=== PATIENT | female | born 1940 | race Caucasian/White ===

== ENCOUNTER → 2017-09-16 | Outpatient (CLI) | payer MEDICARE ==
[2017-09-16 10:54] LABS: Non-African American GFR(MDRD) >60 (>60 ml/min/1.73 sqM)
--- NOTE | 2017-09-17 02:00 | MR ---
EXAMINATION TYPE: MR lumbar spine wo/w con DATE OF EXAM: 09/16/2017 COMPARISON: Unavailable at the time of interpretation. HISTORY: Low back pain CONTRAST: 7 mL intravenous Gadavist. TECHNIQUE: Multiplanar, multisequence images of the lumbar spine were acquired. FINDINGS: Cord terminates at the L1-L2 level. There is loss of disc height L1-2 and L5-S1. L5-S1: No significant disc bulge or disc herniation. No spinal canal stenosis. There is right facet hypertrophy with some posterior lateral thecal sac compression. Right foraminal stenosis with disc material and spurring with impingement of the exiting nerve root.. L4-L5: No significant disc bulge or disc herniation. No spinal canal stenosis. No foraminal stenosi s. There is moderate facet hypertrophy present, greater on the left with some posterior lateral theca l sac compression. L3-L4: Mild subligamentous disc herniation is present extending beyond the endplate of L5 3. This has minimal anterior thecal sac compression. There is moderate facet hypertrophy with moderate posterior lateral thecal sac compression on the left. Minimal right facet hypertrophy is present. L2-L3: No significant disc bulge or disc herniation. No spinal canal stenosis. Some foraminal narro wing is present in the axial plane and not as well appreciated in the sagittal plane. Facet hypertrop hy is present with posterior lateral thecal sac compression bilaterally. . L1-L2: There is moderate size left paracentral disc herniation. This has moderate anterior thecal sac compression. No AP spinal canal stenosis present. Facet hypertrophy is present with mild posterior l ateral thecal sac compression. Moderate left foraminal narrowing may be present. T12-L1: Minimal paracentral disc bulge is present. There is some mild central focal subligamentous di sc herniation with mild anterior thecal sac compression. No cord contact is evident. No AP spinal can al stenosis is present. Facet hypertrophy is present with mild posterior lateral thecal sac compressi on greater on the left which may has some contact with the cord posteriorly. Laminectomy has been performed at L5 on the right and L4 on the right. No stenosis is present. No abn ormal enhancement is evident IMPRESSION: 1. Postsurgical changes L4-5 L5-S1. 2. Multilevel degenerative disc changes greatest at L1-2 and L5-S1. 3. Facet hypertrophy and ligamentum flavum laxity through multiple levels with posterior lateral thec al sac compression. This has cord contact at the T12-L1 level. 4. Subligamentous disc herniation L3-4, L1-L2 and T12-L1 with mild anterior thecal sac compression at these levels.
== END | disposition home or self-care (01) ==
LOC: RADMRIMAIN 10:20
PROVIDERS: ATTEND Psychiatry & Neurology Neurology
DX: M51.15 Intervertebral disc disorders with radiculopathy, thoracolumbar region (principal); M47.27 Other spondylosis with radiculopathy, lumbosacral region; M24.28 Disorder of ligament, vertebrae; G95.29 Other cord compression; Z98.890 Other specified postprocedural states
CPT/HCPCS: 82565; 72158; A9581

== ENCOUNTER → 2017-12-09 | Outpatient (CLI) | payer MEDICARE ==
[2017-12-09 13:13] LABS: HCT 43.1 % (34.0-46.0); HGB 14.9 gm/dL (11.4-16.0); MCH 33.2 pg (25.0-35.0); MCHC 34.5 g/dL (31.0-37.0); MCV 96.3 fL (80.0-100.0); Mean Platelet Volume 6.5; Platelet Count 282 k/uL (150-450); RBC 4.48 m/uL (3.80-5.40); RDW 12.2 % (11.5-15.5); WBC 8.9 k/uL (3.8-10.6)
[2017-12-09 13:17] LABS: INR 1.1 (<1.2)
[2017-12-09 13:30] LABS: ALT 23 U/L (9-52); AST 18 U/L (14-36); Albumin 4.4 g/dL (3.5-5.0); Alkaline Phosphatase 69 U/L (38-126); Anion Gap 10 mmol/L; Blood Urea Nitrogen 17 mg/dL (7-17); Calcium 9.5 mg/dL (8.4-10.2); Carbon Dioxide 31 mmol/L (22-30); Chloride 101 mmol/L (98-107); Glucose 85 mg/dL (74-99); Potassium 3.4 mmol/L (3.5-5.1); Sodium 142 mmol/L (137-145); Total Bilirubin 0.5 mg/dL (0.2-1.3); Total Protein 7.2 g/dL (6.3-8.2)
[2017-12-09 13:44] LABS: Partial Thromboplastin Time 21.9 sec (22.0-30.0)
== END | disposition home or self-care (01) ==
LOC: LABPAT 12:40
PROVIDERS: ATTEND Orthopaedic Surgery
DX: Z01.818 Encounter for other preprocedural examination (principal); Z01.812 Encounter for preprocedural laboratory examination; Z79.01 Long term (current) use of anticoagulants
CPT/HCPCS: 36415; 80053; 85027; 85610; 85730; 87070; 93005

== ENCOUNTER 2017-12-26 05:34 | Inpatient (IN) | payer MEDICARE ==
[2017-12-13 11:22] VITALS: BMI 26.5
[~2017-12-26 05:34] MED LIST: ACETAMINOPHEN TAB 500 MG TAB PO ONE; CLINDAMYCIN 900 MG in DEXTROSE 5% IN WATER 50 ML IVPB ONE; MELOXICAM 7.5 MG TAB PO ONE; MORPHINE SULFATE 4 MG/ML SYRINGE IV PRN; ONDANSETRON 4 MG/2 ML VIAL IVP ONE; TRANEXAMIC ACID 1,000 MG in SODIUM CHLORIDE 0.9% 50 ML IVPB ONE
[2017-12-26] MEDS ORDERED: ROPIVACAINE 246.25 MG, EPINEPHrine 0.5 MG, KETOROLAC 30 MG, cloNIDine HCL/PF 80 MCG, WA... MISCELLANE ONE ×5 (05:59)
[2017-12-26] MEDS ORDERED: LIDOCAINE 1% 20 ML VIAL (10MG/ML) FOR IV START INTRADERMA ONE (06:41)
[2017-12-26] MEDS: LACTATED RINGERS 1,000 ML IV SCH (06:42)
[2017-12-26] MEDS ORDERED: MAGNESIUM HYDROXIDE 2,400 MG/10 ML CUP PO PRN (07:25)
[2017-12-26] MEDS ORDERED: hydrOXYzine PAMOATE 25 MG CAP PO PRN (07:25)
[2017-12-26] MEDS ORDERED: MORPHINE SULF 5MG/10ML VL IVP PRN ×2 (07:25)
[2017-12-26] MEDS ORDERED: DIAZEPAM 5 MG TAB PO PRN ×2 (07:25)
[2017-12-26] MEDS ORDERED: ONDANSETRON 4 MG/2 ML VIAL IVP PRN (07:25)
[2017-12-26] MEDS ORDERED: NALOXONE 0.4 MG/ML 1 ML VIAL IV PRN (07:25)
[2017-12-26] MEDS ORDERED: HYDROcodone/APAP 5-325MG 1 EACH TAB PO PRN (07:25)
[2017-12-26] MEDS ORDERED: PROPOFOL 10 MG/ML 20 ML VIAL IV ONE (07:28)
[2017-12-26] MEDS ORDERED: TRANEXAMIC ACID 1,000 MG/10 ML VIAL ONE (07:28)
[2017-12-26] MEDS ORDERED: fentaNYL (PF) 50 MCG/ML 2 ML AMP ONE (07:28)
[2017-12-26] MEDS ORDERED: SODIUM CHLORIDE 0.9% 100 ML BAG ONE (07:28)
[2017-12-26] MEDS ORDERED: LIDOCAINE 1% INJ 10MG/ML (20 ML MDV) ONE (07:28)
[2017-12-26] MEDS ORDERED: MIDAZOLAM 2 MG/2 ML VIAL ONE (07:28)
[2017-12-26] MEDS ORDERED: ePHEDrine SULFATE/0.9% NACL/PF 50 MG/5 ML SYRINGE IV ONE (07:28)
--- NOTE | 2017-12-26 09:02 | P.OP ---
Date of Procedure: 12/26/17 Preoperative Diagnosis: Severe Osteoarthritis right hip Postoperative Diagnosis: Severe osteoarthritis right hip Procedure(s) Performed: Right total hip arthroplasty with a direct anterior approach Implants: Hawley and nephew Polarstem size 1 standard Hawley [employer] Nephew R3, 3 hole acetabular shell, 48 mm Hawley [employer]hew reflection 6.5 mm cancellus screw, 20 mm 2 [employer]ley [employer]hew R3, XLPE 20 acetabular liner [employer]ley & Nephew Oxinium femoral head 32 m, +0 All components were press-fit. The articulation is Oxinium on polyethylene. Anesthesia: spinal Surgeon: Lukas Collins Corporate Travel Counselor #1: Araceli Guillaume Estimated Blood Loss (ml): 200 (65 mL returned with Cell Saver) Pathology: other (Femoral head) Condition: stable Disposition: PACU Indications for Procedure: After failure of conservative treatment we discussed the surgical and nonsurgical treatment options at length. Patient wishes to proceed with a total hip arthroplasty with a direct anterior approach. Complications specific to this procedure were discussed at length, including but not limited to infection, leg length discrepancy, dislocation, and nerve injury. Patient is aware of all these complications and informed consent was obtained Operative Findings: The operative findings are consistent with severe osteoarthritis of the right hip Description of Procedure: Patient was seen and evaluated in the preoperative area, consent was reviewed, and the surgical site was marked with a skin marker. Patient was then brought to the operating room and given prophylactic antibiotics intravenously. 1 g of Tranexamic acid was also given. A spinal anesthetic was administered by the anesthesia department. The patient was then placed on the Broadview table with the bony prominences well-padded. The hip area was then prepped and draped in usual sterile fashion. A universal timeout was then performed, which confirmed the patient's name, surgical site, ALLERGIES, and procedure being performed. Next the incision site was located at 1 cm distal and 1 cm lateral to the anterior superior iliac spine. The skin and subcutaneous tissues were sharply incised. Incision was carefully dissected down to the fascia overlying the tensor fascia deirdre muscle. This fascia was then incised in line with the incision. Next, using blunt finger dissection, the tensor fascia deirdre muscle was dissected off its investing fascia. The muscle was then carefully retracted laterally with a cobra retractor over the lateral neck of the femur. Next, the circumflex vessels were identified and cauterized using the AquaMantis device. The anterior hip capsule was then exposed. The capsule was then opened and an inverted T fashion. Cobra retractors were then placed intracapsularly. The proximal femur was then visualized. The femoral neck was then osteotomized appropriate level above the lesser trochanter. Small amount of traction was placed with the Broadview table. A small wedge of bone was then removed from the remaining femoral head. Next, using a corkscrew femoral head was easily removed from the acetabulum. On gross visual inspection, the femoral head had complete loss of articular cartilage in multiple periarticular osteophytes. Attention was then turned to the acetabulum. the acetabulum was exposed and any remaining labrum was excised. Sequential reaming of the acetabulum was performed using fluoroscopic guidance. When the appropriate size was reached, a trial was then placed. The position and fit of the trial was checked with fluoroscopy. The trial was then removed. Then, using fluoroscopic guidance, the final implant was impacted at 20 of anteversion and 40 of abduction, and fully seated in the acetabulum. 2 screws were then placed in the acetabulum. Again fluoroscopy was used to check position of the screws. Next, the liner was then impacted, with a 20 elevated liner located in the anterior superior quadrant. Component locking was confirmed. Attention was then directed to the femur. With the aid of the Broadview table, the femur was externally rotated to approximately 130, extended, and abducted under the opposite leg. A side hook was then placed under the proximal femur, and the side hook elevator was used to elevate the proximal femur. Retractors were then placed. A capsular release was performed, as well as a release of the conjoined tendon, which afforded excellent visualization of the proximal femur. Next, a box osteotome was used to lateralize the proximal femur. A merchandise appraiser was then used to locate the femoral canal. Sequential broaching was then performed with appropriate size which afforded excellent fixation in the proximal femur. A trial was then placed with appropriate head and neck, and the hip was gently reduced with the aid of the Broadview table. Fluoroscopy was then used to check position of the components, as well as to ensure equal leg lengths. The hip was then gently dislocated and the trials were then removed. Final implants were then impacted and the hip was again reduced. Final fluoroscopic x-rays confirmed that the components were in anatomic position, as well as equal leg lengths. The hip was also taken through range of motion, and found to be stable. The hip was then copiously irrigated with antibiotic solution with pulsatile lavage. The hip was then irrigated with Irrisept solution. The soft tissues were then injected with a ropivacaine solution, which consisted of 246.25 mg of ropivacaine, 0.5 mg of epinephrine, 30 mg of Toradol, 80 g of clonidine, and 48.45 mL of sterile water, for a total of 100 mL of fluid injected. A second dose of 1 g of Tranexamic acid was also given. the fascia was then closed with 2-0 strata fix suture. The subcutaneous tissue was closed with 3-0 Vicryl. The subcuticular tissue was closed with 3-0 strata fix suture. The skin was then closed with Dermabond glue and a sterile silver dressing. The patient was then transferred to the recovery room in stable condition. The electrician's assistant VALENTINO Lara was required due to the complexity of surgery, and the need for skilled director surgical for positioning, draping, exposure, retraction, and closure of the wound.
[2017-12-26] MEDS ORDERED: LACTATED RINGERS 1,000 ML IV ONE (09:03)
--- NOTE | 2017-12-26 09:22 | XR ---
EXAMINATION TYPE: XR Hip Limited RT, FL guidance operating room DATE OF EXAM: 12/26/2017 COMPARISON: NONE HISTORY: 77-year-old female right anterior hip replacement FINDINGS: Intraoperative fluoroscopy during right hip total arthroplasty. 2 AP images are provided. FLUOROSCOPY Fluoroscopy time of 39 seconds was used during right anterior hip replacement. 2 image/s document/s the procedure. IMPRESSION: Intraoperative fluoroscopy as above.
--- NOTE | 2017-12-26 09:23 | XR ---
EXAMINATION TYPE: XR Hip Limited RT DATE OF EXAM: 12/26/2017 COMPARISON: NONE HISTORY: 77-year-old female status post hip surgery, assess surgical alignment TECHNIQUE: Single portable AP view FINDINGS: Image shows placement of right hip total arthroplasty. Both acetabular cup and femoral short stemmed components of the prosthesis appear well seated without periprosthetic fracture. Alignment grossly an atomic. Scattered soft tissue gas related to recent operation. IMPRESSION: Uncomplicated postoperative appearance right total hip arthroplasty.
[2017-12-26] MEDS ORDERED: MORPHINE SULFATE 10 MG/ML SYRINGE IVP ONE ×2 (09:26→09:45)
[2017-12-26] MEDS: SODIUM CHLORIDE 0.9% 1,000 ML IV SCH (10:44)
[2017-12-26] MEDS: HYDROcodone/APAP 5-325MG 1 EACH TAB PO PRN ×2 (14:40→21:22)
[2017-12-26] MEDS: CLINDAMYCIN 900 MG in DEXTROSE 5% IN WATER 50 ML IVPB SCH ×4 (14:44→22:55)
[2017-12-26] MEDS: MORPHINE SULF 5MG/10ML VL IVP PRN (17:16)
[2017-12-26] MEDS: ASPIRIN 325 MG TAB PO SCH (21:21)
[2017-12-26] MEDS: SENNOSIDES-DOCUSATE SODIUM 1 EACH TAB PO SCH (21:22)
[2017-12-26] MEDS: GABAPENTIN 300 MG CAP PO SCH (21:22)
--- NOTE | 2017-12-26 22:39 | CONS ---
CONSULTATION This is a 77-year-old white female, status post right hip replacement. I am consulted for medical management consult status post hip replacement. She is up walking to the bathroom. She has a history of hypertension. Medications were reviewed with the patient. She appears to be doing well, ambulating postoperatively at this time. PAST MEDICAL HISTORY: Hypertension. REVIEW OF SYSTEMS: Fourteen-point review of systems negative except for mentioned in the HPI. PHYSICAL EXAMINATION: Temperature 98, pulse 60 to 70, respiratory rate 16 to 18, blood pressure 120/68, oxygen 94% on room air. CARDIOVASCULAR: S1, S2. LUNGS: Clear. GI: Soft. HEMATOLOGY: Negative Homans. MUSCULOSKELETAL: Range of motion full x4. She is up ambulating on her hip postoperatively. ASSESSMENT: 1. Status post hip replacement. 2. Hypertension. 3. Osteoarthritis. Continue with current treatment. Start home Neurontin and her atenolol for blood pressure. Follow up in next 24 to 48 hours. MMODL / IJN: [id number] /
[2017-12-27] MEDS: MORPHINE SULF 5MG/10ML VL IVP PRN (01:38)
[2017-12-27] MEDS: SODIUM CHLORIDE 0.9% 1,000 ML IV SCH ×2 (06:43→08:46)
[2017-12-27] MEDS: LACTATED RINGERS 1,000 ML IV SCH (06:43)
[2017-12-27 07:32] LABS: Basophils % (A) 0 %; Eosinophils # (A) 0.1 k/uL (0-0.7); Eosinophils % (A) 1 %; Lymphocytes # (A) 2.7 k/uL (1.0-4.8); Lymphocytes % (A) 27 %; MCHC 34.6 g/dL (31.0-37.0); MCV 95.5 fL (80.0-100.0); Mean Platelet Volume 8.4; Monocytes # (A) 0.9 k/uL (0-1.0); Monocytes % (A) 8 %; Neutrophils # (A) 6.4 k/uL (1.3-7.7); Neutrophils % (A) 63 %; Platelet Count 186 k/uL (150-450); RBC 3.46 m/uL (3.80-5.40); RDW 12.5 % (11.5-15.5); WBC 10.2 k/uL (3.8-10.6)
[2017-12-27 07:34] LABS: HGB 11.4 gm/dL (11.4-16.0)
[2017-12-27] MEDS ORDERED: HYDROcodone/APAP 7.5-325MG 1 EACH TAB PO PRN (08:16)
--- NOTE | 2017-12-27 08:19 | P.PN ---
Subjective Progress Note Date: 12/27/17 This 77-year-old female who is status post right total hip arthroplasty. This is postoperative day #1. Patient states that she does have some pain in the right hip ,especially after walking, but the pain is tolerable. Patient denies any fever/chills, numbness, weakness, tingling, abdominal pain, shortness of breath or chest pain. Objective - Vital Signs Vital signs: Vital Signs Temp 98.5 F 12/27/17 00:26 Pulse 87 12/27/17 00:26 Resp 16 12/27/17 00:26 BP 114/66 12/27/17 00:26 Pulse Ox 94 L 12/27/17 00:26 Intake & Output 12/26/17 12/27/17 12/27/17 18:59 06:59 18:59 Intake Total 1056 2040 Output Total 300 Balance 756 2040 Intake: IV 1056 Intake, IV Titration 1140 Amount Clindamycin 900 mg In 100 Dextrose 5% in Water 50 ml @ 100 mls/hr IVPB Q8H WILBERT Rx#:[id number] Sodium Chloride 0.9% 1, 1040 000 ml @ 65 mls/hr IV . [id number] WILBERT Rx#:[id number] Oral 900 Output: Urine 100 Estimated Blood Loss 200 Other: Voiding Method Toilet # Voids 1 2 - Exam Vital signs are stable. Patient is in no acute distress and is alert and oriented 3. Calf is soft and nontender to palpation. Dressing is clean, dry, and intact. Patient has full foot and ankle motion without pain or difficulty. Neurovascular status and circulatory status are intact. - Labs CBC & Chem 7: 12/27/17 06:40 12/26/17 06:40 Labs: Abnormal Lab Results - Last 24 Hours (Table) 12/27/17 Range/Units 06:40 RBC 3.46 L (3.80-5.40) m/uL Hct 33.0 L (34.0-46.0) % Assessment and Plan (1) S/P total hip arthroplasty Current Visit: Yes Status: Acute Code(s): Z96.649 - PRESENCE OF UNSPECIFIED ARTIFICIAL HIP JOINT SNOMED Code(s): 325092120364 (2) Primary osteoarthritis of right hip Current Visit: Yes Status: Acute Code(s): M16.11 - UNILATERAL PRIMARY OSTEOARTHRITIS, RIGHT HIP SNOMED Code(s): 363524942 Plan: Continue routine postop care. Continue antocoagulation. Weightbearing as tolerated with a walker Leave dressing in place for 10-14 days Possible discharge home tomorrow.
[2017-12-27] MEDS: ASPIRIN 325 MG TAB PO SCH ×2 (08:35→20:05)
[2017-12-27] MEDS: GABAPENTIN 300 MG CAP PO SCH ×3 (08:36→23:22)
[2017-12-27] MEDS: MELOXICAM 7.5 MG TAB PO SCH (08:36)
[2017-12-27] MEDS: ATENOLOL 25 MG TAB PO SCH ×2 (08:36→08:57)
[2017-12-27] MEDS: HYDROcodone/APAP 7.5-325MG 1 EACH TAB PO PRN ×3 (08:37→20:06)
[2017-12-27] MEDS ORDERED: MORPHINE SULFATE 4MG/4ML SYRG IVP PRN ×3 (14:27→14:28)
[2017-12-27 15:53] VITALS: RESP 16
[2017-12-27] MEDS: SENNOSIDES-DOCUSATE SODIUM 1 EACH TAB PO SCH (20:05)
[2017-12-28 05:22] VITALS: TEMP 98.7
[2017-12-28] MEDS: LACTATED RINGERS 1,000 ML IV SCH (06:55)
[2017-12-28] MEDS: SODIUM CHLORIDE 0.9% 1,000 ML IV SCH (06:55)
[2017-12-28] MEDS: HYDROcodone/APAP 7.5-325MG 1 EACH TAB PO PRN ×2 (07:52→14:37)
[2017-12-28] MEDS: MELOXICAM 7.5 MG TAB PO SCH (08:47)
[2017-12-28] MEDS: GABAPENTIN 300 MG CAP PO SCH (08:47)
[2017-12-28] MEDS: ASPIRIN 325 MG TAB PO SCH (08:48)
[2017-12-28] MEDS: ATENOLOL 25 MG TAB PO SCH (08:48)
--- NOTE | 2017-12-28 08:49 | P.DS ---
Providers Date of admission: 12/26/17 05:34 Expected date of discharge: 12/28/17 Attending physician: Lukas Collins Consults: 12/26/17 07:25 Consult Physician Routine Consulting Provider: Clifton Alan Reason/Comments: medical management Do you want consulting provider notified?: Yes Primary care physician: Lorne Alan - Discharge Diagnosis(es) (1) S/P total hip arthroplasty Current Visit: Yes Status: Acute (2) Primary osteoarthritis of right hip Current Visit: Yes Status: Acute Hospital Course: This is a 77-year-old female with known history of degenerative arthritis of the right hip. The patient presents for evaluation. After discussion and consideration patient elects to proceed with total hip arthroplasty. The patient is seen preoperatively by Dr. Collins and medically cleared for surgery by their primary care physician. Patient is admitted to [facility] on 12/26/2017 for total hip arthroplasty. The procedures performed without complication or sequelae. The patient is doing well postoperatively. Labs and vital signs are stable on day of discharge. On day of discharge patient's hip incision is healing well. There is minimal erythema. There is no drainage noted at this time. There is minimal soft tissue swelling to the hip and thigh. Patient has full foot and ankle motion without difficulty or pain. Calves are soft and nontender bilaterally. Neurovascular status to the right lower extremity is intact. Patient is discharged home in good condition. Please see med rec for accurate list of home medications. Plan - Discharge Summary Discharge Rx Participant: Yes New Discharge Prescriptions: New Aspirin 325 mg PO BID #60 tab HYDROcodone/APAP 7.5-325MG [Dewey 7.5-325] 1 - 2 tab PO Q4-6H PRN #60 tab PRN Reason: Pain Sennosides [Senokot] 1 tab PO BID #60 tablet No Action Atenolol [Tenormin] 25 mg PO DAILY traMADol HCL [Ultram] 25 mg PO TID PRN PRN Reason: Pain Gabapentin [Neurontin] 300 mg PO TID Discharge Medication List Atenolol [Tenormin] 25 mg PO DAILY 02/19/16 [History] Gabapentin [Neurontin] 300 mg PO TID 02/19/16 [History] traMADol HCL [Ultram] 25 mg PO TID PRN 02/19/16 [History] Aspirin 325 mg PO BID #60 tab 12/28/17 [Rx] HYDROcodone/APAP 7.5-325MG [Dewey 7.5-325] 1 - 2 tab PO Q4-6H PRN #60 tab [Rx] Sennosides [Senokot] 1 tab PO BID #60 tablet 12/28/17 [Rx] Follow up Appointment(s)/Referral(s): [facility], [NON-STAFF] - Lukas Collins DO [Doctor of Osteopathic Medicine] - 2 Weeks Activity/Diet/Wound Care/Special Instructions: Weightbearing as tolerated with walker. Leave dressing intact. Dressing may be removed by home care nurse in 10-14 days. May shower with dressing on. Please take medications as prescribed. Follow-up with [facility] in 2 weeks, please call with any questions or concerns [phone] Discharge Disposition: HOME WITH HOME HEALTH SERVICES
[2017-12-28 14:53] VITALS: BP 105/61; PULSE 73
== END 2017-12-28 16:14 | disposition home health service (06) | DRG 470 ==
LOC: 2ORMAIN 05:34 → 3SUR 09:16
PROVIDERS: ADMIT Orthopaedic Surgery; ATTEND Orthopaedic Surgery
PROC: 30233N0 Transfusion of Autologous Red Blood Cells into Peripheral Vein, Percutaneous Approach (ICD-10-PCS; 2017-12-26)
PROC: 0SR906A Replacement of Right Hip Joint with Oxidized Zirconium on Polyethylene Synthetic Substitute, Uncemented, Open Approach (ICD-10-PCS; principal; 2017-12-26 07:30)
DX: M16.11 Unilateral primary osteoarthritis, right hip (principal); I69.359 Hemiplegia and hemiparesis following cerebral infarction affecting unspecified side; I10 Essential (primary) hypertension; R53.83 Other fatigue; M25.751 Osteophyte, right hip; M81.0 Age-related osteoporosis without current pathological fracture; H40.9 Unspecified glaucoma; M41.9 Scoliosis, unspecified; M47.817 Spondylosis without myelopathy or radiculopathy, lumbosacral region; M54.12 Radiculopathy, cervical region; M19.012 Primary osteoarthritis, left shoulder; E78.5 Hyperlipidemia, unspecified; E87.6 Hypokalemia; Z96.653 Presence of artificial knee joint, bilateral; Z85.828 Personal history of other malignant neoplasm of skin; Z85.3 Personal history of malignant neoplasm of breast; Z79.899 Other long term (current) drug therapy; Z88.0 Allergy status to penicillin; Z79.82 Long term (current) use of aspirin; Z86.59 Personal history of other mental and behavioral disorders; Z86.010 Personal history of colon polyps; Z90.49 Acquired absence of other specified parts of digestive tract; Z90.710 Acquired absence of both cervix and uterus; Z90.89 Acquired absence of other organs; Z92.3 Personal history of irradiation; Z82.49 Family history of ischemic heart disease and other diseases of the circulatory system
CPT/HCPCS: 73501; 84132; 85025; 86850; 86900; 86901; 88300

== ENCOUNTER → 2018-07-19 | Outpatient (CLI) | payer MEDICARE ==
--- NOTE | 2018-07-19 12:37 | CT ---
EXAMINATION TYPE: CT shoulder RT wo con DATE OF EXAM: 07/19/2018 COMPARISON: Pain HISTORY: Pain, osteoarthritis CT DLP: 431 mGycm Automated exposure control for dose reduction was used. FINDINGS: There is fluid within the subacromial subdeltoid bursa. There severe arthropathy of the glenohumeral joint and acromioclavicular joint. Soft tissue ossificat ion is seen along the anterior margin of the scapula. Visualized lung kirkland demonstrate mild interlobular septal thickening. Calcified granuloma in the ri ght upper lobe on image 39 noted. No pathologic adenopathy in the axilla. Chronic rib deformities suggest remote trauma. Hypertrophic and degenerative change of the vertebral column. IMPRESSION: 1. Severe arthropathy of the glenohumeral joint with complete loss of joint space and likely complete loss of articular cartilage. 2. 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 3. Moderate to severe AC joint arthropathy with fluid in the subacromial subdeltoid bursa. This can b e a secondary sign of the rotator cuff tendon injury. Correlate clinically.
== END ==
LOC: RADCTMAIN 10:36
PROVIDERS: ATTEND Orthopaedic Surgery Sports Medicine
DX: M19.011 Primary osteoarthritis, right shoulder (principal); D48.0 Neoplasm of uncertain behavior of bone and articular cartilage

== ENCOUNTER → 2018-08-01 | Outpatient (CLI) | payer MEDICARE ==
[2018-08-01 12:54] LABS: HCT 44.7 % (34.0-46.0); HGB 14.3 gm/dL (11.4-16.0); MCH 31.8 pg (25.0-35.0); MCHC 32.1 g/dL (31.0-37.0); MCV 99.3 fL (80.0-100.0); Mean Platelet Volume 6.9; Platelet Count 324 k/uL (150-450); RDW 12.7 % (11.5-15.5); WBC 9.4 k/uL (3.8-10.6)
[2018-08-01 12:58] LABS: INR 1.1 (<1.2); Partial Thromboplastin Time 22.7 sec (22.0-30.0); Prothrombin Time 10.5 sec (9.0-12.0)
[2018-08-01 13:04] LABS: ALT 18 U/L (9-52); AST 22 U/L (14-36); Albumin 4.1 g/dL (3.5-5.0); Alkaline Phosphatase 58 U/L (38-126); Anion Gap 9 mmol/L; Blood Urea Nitrogen 12 mg/dL (7-17); Calcium 9.4 mg/dL (8.4-10.2); Carbon Dioxide 29 mmol/L (22-30); Chloride 102 mmol/L (98-107); Glucose 85 mg/dL (74-99); Potassium 3.7 mmol/L (3.5-5.1); Sodium 140 mmol/L (137-145); Total Bilirubin 0.5 mg/dL (0.2-1.3); Total Protein 7.2 g/dL (6.3-8.2)
[2018-08-01 13:19] LABS: Appearance,Urine Clear (Clear); Bilirubin,Urine Negative (Negative); Blood,Urine Negative (Negative); Color,Urine Yellow; Glucose,Urine (UA) Negative (Negative); Ketones,Urine Negative (Negative); Leukocyte Esterase,Urine Negative (Negative); Nitrite,Urine Negative (Negative); Protein,Urine Negative (Negative); Specific Gravity,Urine 1.011 (1.001-1.035)
== END ==
LOC: LABPAT 11:00
PROVIDERS: ATTEND Orthopaedic Surgery Sports Medicine
DX: Z01.812 Encounter for preprocedural laboratory examination (principal); M19.011 Primary osteoarthritis, right shoulder
CPT/HCPCS: 80053; 81003; 85027; 85610; 85730; 87070

== ENCOUNTER 2018-08-10 09:58 | Inpatient (IN) | payer MEDICARE ==
[2018-08-02 10:41] VITALS: BMI 27.4
[~2018-08-10 09:58] MED LIST changes: +DEXAMETHASONE SOD PHOSPHATE 10 MG/ML 1 ML VIAL IV ONE; +HYDROmorphone 1 MG/ML 1 ML SYRINGE IVP PRN; +LIDOCAINE 1% 20 ML VIAL (10MG/ML) FOR IV START INTRADERMA PRN; +MIDAZOLAM 2 MG/2 ML VIAL IV PRN; -MORPHINE SULFATE 4 MG/ML SYRINGE IV PRN; +fentaNYL (PF) 50 MCG/ML 2 ML AMP IV PRN
[2018-08-10] MEDS: LACTATED RINGERS 1,000 ML IV SCH ×3 (11:15→22:31)
[2018-08-10] MEDS ORDERED: fentaNYL (PF) 50 MCG/ML 2 ML AMP IVP ONE (11:40)
[2018-08-10] MEDS ORDERED: MIDAZOLAM 2 MG/2 ML VIAL IVP ONE (11:40)
[2018-08-10] MEDS ORDERED: ROCURONIUM BROMIDE 10 MG/ML 10 ML VIAL IV ONE (12:10)
[2018-08-10] MEDS ORDERED: ePHEDrine SULFATE/0.9% NACL/PF 50 MG/5 ML SYRINGE IV ONE (12:10)
[2018-08-10] MEDS ORDERED: SUCCINYLCHOLINE CHLORIDE 100 MG/5 ML SYR IV ONE (12:10)
[2018-08-10] MEDS ORDERED: SODIUM CHLORIDE 0.9% 100 ML BAG ONE (12:10)
[2018-08-10] MEDS ORDERED: ROPIVACAINE 5 MG/ML 30 ML VIAL ONE (12:10)
[2018-08-10] MEDS ORDERED: TRANEXAMIC ACID 1,000 MG/10 ML VIAL ONE (12:10)
[2018-08-10] MEDS ORDERED: PHENYLEPHRINE-0.9% NACL SYG 1 MG/10 ML SYRINGE ONE (12:10)
[2018-08-10] MEDS ORDERED: CLINDAMYCIN 1,800 MG in SODIUM CHLORIDE 0.9% IRRIGATIO 3,000 ML IRRIGATION ONE (12:48)
[2018-08-10] MEDS ORDERED: VANCOMYCIN 1,000 MG VIAL MISCELLANE ONE (13:07)
[2018-08-10] MEDS ORDERED: HYDROcodone/APAP 5-325MG 1 EACH TAB PO PRN (14:09)
[2018-08-10] MEDS ORDERED: PROCHLORPERAZINE SUPPOSITORY 25 MG SUPP RECTAL PRN (14:09)
[2018-08-10] MEDS ORDERED: HYDROmorphone 1 MG/ML 1 ML SYRINGE IVP PRN ×2 (14:09)
[2018-08-10] MEDS ORDERED: METOCLOPRAMIDE 5 MG/ML 2 ML VIAL IVP PRN (14:09)
[2018-08-10] MEDS ORDERED: TEMAZEPAM 15 MG CAP PO PRN (14:09)
[2018-08-10] MEDS ORDERED: diphenhydrAMINE 25 MG CAP PO PRN (14:09)
[2018-08-10] MEDS ORDERED: hydrOXYzine PAMOATE 25 MG CAP PO PRN (14:09)
[2018-08-10] MEDS ORDERED: SENNOSIDES-DOCUSATE SODIUM 1 EACH TAB PO PRN (14:09)
[2018-08-10] MEDS ORDERED: VANCOMYCIN IV PER PHARMACY 1 EACH MISC MISCELLANE PRN (14:12)
--- NOTE | 2018-08-10 14:59 | XR ---
Portable right shoulder History: post op hardware alignment Single portable view right shoulder was submitted. Glenohumeral prosthesis is in place and appears to be well seated.
--- NOTE | 2018-08-10 15:42 | P.ONQ ---
Anesthesiology Proc Note - PNB - Peripheral Nerve Block Performed Right Interscalene Single Procedure Start Time: 11:35 Procedure Stop Time: 11:45 Indication: Requested by physician Specifically requested for management of pain by DrAidee: Jason Gudino Sedation Type: Sedate with meaningful contact maintained Preparation: Sterile Prep Position: Supine Needle Types: Other (see comment) (pujunk) Needle Size: 50mm (2") Needle Gauge: 21 Technique: Ultrasound Injectate: 0.5% Ropivacaine (see comment for volume) (25 ml) Blood Aspirated: No Pain Paresthesia on Injection Noted: No Resistance on Injection: Normal Events: Uneventful and Well Tolerated
[2018-08-10] MEDS: HYDROcodone/APAP 5-325MG 1 EACH TAB PO PRN (21:01)
[2018-08-10] MEDS: HYDROmorphone 1 MG/ML 1 ML SYRINGE IVP PRN (23:29)
[2018-08-11] MEDS ORDERED: VANCOMYCIN 1,000 MG in SODIUM CHLORIDE 0.9% 250 ML IVPB ONE (01:00)
[2018-08-11] MEDS: HYDROcodone/APAP 5-325MG 1 EACH TAB PO PRN (02:46)
[2018-08-11] MEDS: LACTATED RINGERS 1,000 ML IV SCH ×3 (03:56→20:51)
[2018-08-11] MEDS: HYDROmorphone 1 MG/ML 1 ML SYRINGE IVP PRN ×2 (04:27→08:59)
[2018-08-11 08:31] LABS: Basophils % (A) 0 %; Eosinophils # (A) 0.1 k/uL (0-0.7); Eosinophils % (A) 2 %; HCT 33.9 % (34.0-46.0); HGB 11.4 gm/dL (11.4-16.0); Lymphocytes # (A) 1.7 k/uL (1.0-4.8); Lymphocytes % (A) 22 %; MCH 33.3 pg (25.0-35.0); MCHC 33.7 g/dL (31.0-37.0); MCV 98.9 fL (80.0-100.0); Mean Platelet Volume 6.8; Monocytes # (A) 0.5 k/uL (0-1.0); Monocytes % (A) 6 %; Neutrophils # (A) 5.5 k/uL (1.3-7.7); Neutrophils % (A) 69 %; Platelet Count 238 k/uL (150-450); RBC 3.43 m/uL (3.80-5.40); RDW 12.9 % (11.5-15.5)
--- NOTE | 2018-08-11 08:37 | OP ---
OPERATIVE REPORT DATE OF PROCEDURE: 08/10/2018 SURGEON: Jason Gudino MD MOBILE GAME ENGINEER: Gm HAYS. PREOPERATIVE DIAGNOSIS: Right shoulder osteoarthrosis. POSTOPERATIVE DIAGNOSES: 1. Right shoulder osteoarthrosis. 2. Right shoulder rotator cuff tear. OPERATION: 1. Right reverse total shoulder arthroplasty. 2. Right open proximal biceps tenodesis. ANESTHESIA: General endotracheal. ESTIMATED BLOOD LOSS: 200 mL. DRAINS: One deep drain. COMPLICATIONS: None apparent. DISPOSITION: Postanesthesia care unit. INDICATIONS: Jing is a very pleasant 78-year-old female with longstanding right shoulder pain. Workup including x-rays and a CT scan revealed advanced osteoarthrosis of the right shoulder. At this point, she feels that she has failed conservative management and would like to proceed with operative intervention. The risks of procedure were discussed with her in detail. These risks included, but were not limited to a risk of infection, nerve damage, bleeding, pain, instability in the shoulder, loosening of the implants and deep infection. There is also small risk of deep vein thrombosis which could lead to fatal pulmonary embolism. Patient understood the risks. All of her questions with regard to the risks of the procedure were answered to her satisfaction. An appropriate informed consent was obtained. DESCRIPTION OF THE PROCEDURE: Patient identified in the preoperative holding area. Surgical site was marked by both the patient and myself. She was given 600 mg of Cleocin IV for prophylactic purposes. She was then transferred to the operative suite. She was placed supine on the operative table. General anesthetic was then administered and dosed per the Anesthesia Department without apparent complication. Examination under anesthesia was then performed of the right shoulder. She had elevation to 130 degrees. External rotation at the side was 20 degrees. The patient was then placed into the beach chair position, well-padded in preparation for surgery. Great care was taken to ensure that her neck was appropriately padded in neutral alignment and maintained that way throughout the operative procedure. Great care was also taken to ensure the legs were appropriately padded as well. The patient's right upper extremity is then prepped and draped in the usual sterile fashion. Standard surgical pause undertaken to ensure that we were operating the correct site and that appropriate preoperative antibiotics were given. All staff in the room were in agreement and we proceeded. The acromion, AC joint, clavicle and coracoid were marked with surgical pen. A planned incision starting at the level of the clavicle and extending distally over the deltopectoral interval approximately 1 cm lateral to the coracoid was marked with a surgical pen. The incision was then made with a 10 blade scalpel. Dissection was carried down sharply to the deltoid fascia. Hemostasis was achieved with electrocautery. The deltopectoral interval was then identified at the level of the clavicle. The small band retractor was then placed under the proximal deltoid. We then released the deltoid fascia on the lateral aspect of the cephalic vein. The vein was left in its bed medially. The cephalic vein was protected throughout the entire case. I then identified the clavipectoral fascia. It was incised approximately at the level of the coracoacromial ligament. The coracoacromial ligament was left intact. I then used my finger to spread the interval between the conjoint tendon and subscapularis. I felt for the axillary nerve which was readily palpable. I then cleared the subacromial and subdeltoid spaces of bursal and scar tissue. She immediately had a clayton of joint fluid at that point in time. I was able to palpate a fairly large rotator cuff defect in her supraspinatus and the anterior aspect of the infraspinatus. I then utilized a brown retractor to hold the deltoid and expose the humeral head. I then proceeded with release of the subscapularis in the anterior inferior shoulder capsule. The rotator cuff was inspected. It was found to be intact. The rotator interval was then identified. The course of the biceps tendon was also identified. I then proceeded to tenodesed the proximal long head of the biceps tendon with multiple 0 Vicryl interrupted sutures to the surrounding fascia around the bicipital groove. The tendon above the tenodesis was then tenotomized and removed. I then released the rotator interval at the base of the coracoid. It was then released out laterally. The subscapularis and the capsule were then released intratendinously. The subscapularis and capsule release extended distally in a lazy-S fashion. This was approximately 1 cm medial to the biceps tendon. I then continued to release the capsule along the inferior neck in a vertical fashion to approximately the 6 o'clock position. Great care was taken to ensure that the capsule was always visualized as it was released to avoid injuring the axillary nerve. I then brought the West language interpreter with the arm externally rotated and abducted. I continued to release the capsule inferomedially to approximately the 4 o'clock position. The inferior osteophytes were now removed as well. This was done with a rongeur. I then proceeded with preparation of the humerus. I removed all of the goat's monroe osteophytes. I then removed the subchondral plate from the superior aspect of the humeral head utilizing a large rongeur. I then used a starter reamer to gain access to the humeral canal. This was approximately 1 cm medial to the rotator cuff insertion and 1 cm posterior to the bicipital groove. I then prepared the humeral canal with hand reaming. I started with a 4 mm reamer and progressed incrementally in 1 mm increments up until firm resistance was encountered. This was at 8 mm. The reamer handle was then left in place. I then utilized a humeral resection guide set at 30 degrees of retrotorsion. The cutting block was then set approximately 1 mm above the insertion of the rotator cuff. I then proceeded to osteotomized the humeral head with an oscillating saw. I removed the resection guide and then completed the osteotomy. I then proceeded with trial stem placement. I started with a size 5 trial stem and then broached the canal incrementally up to 8 mm broach. The trial stem was then left in place. At this point, I inspected the rotator cuff. She did have a fairly large tear. I made a decision at this point to proceed with a reverse total shoulder arthroplasty. A bone hook was then used to pull the humerus out laterally. I then inspected the joint for any loose bodies. The Bhattman retractor was then placed on the posterior glenoid rim. The arm was placed in approximately 70-80 degrees of abduction and in slight flexion on the West stand. I then proceeded to remove the hypertrophic labrum to definitively identify the actual glenoid. She did have a fairly large loose body which was noted on CT scan in the anterior recess. I then released the capsule anteriorly. I then was able to remove a fairly large, approximately 1/2 to 2 cm in diameter osteophyte from the recess posterior to the subscapularis. I then utilized the mini base plate starting guide. The pin was then placed in the center of the glenoid with approximately 10 degrees of inferior tilt. I then reamed over the pin with the mini base plate reamer. I then had the ambulatory service representative open a Biomet mini base plate. This was impacted firmly into place. I then proceeded to place a central screw. A 30 mm IF central screw was then placed. This had excellent purchase in bone. I was able to rotate the scapula through the screwdriver when the screw had been fully seated. I then proceeded to place the peripheral locking screws on the base plate. The superior, posterior and inferior screws were placed. These were all 5 mm locking screws. The anterior screw was not placed. I then proceeded to place the glenoid sphere. She was a smaller lady. I utilized a 36 glenoid sphere. This was offset inferiorly as much as possible. This was then impacted on the Hansen taper securely. I then proceeded with trialing. I utilized a standard base plate in a standard poly trial. The shoulder was reduced very carefully. It was a little loose. I then trialed with a +3 poly and a standard tray. This felt much better. The tension was very good. She had full range of motion without impingement. The Shuck was minimal. The deltoid and the conjoint tendon had appropriate tension. I then removed dislocated the shoulder carefully. The trial components were removed. The wound was thoroughly irrigated with sterile saline solution with antibiotic added. I had the ambulatory service representative open a 44 standard tray, a +3 poly and a 8 mm mini stem. The mini stem was impacted, then impacted into the humeral canal and 30 degrees of retrotorsion. The poly was impacted onto the tray on the back table and then was inserted onto the Hansen taper of the stem. The shoulder was then reduced. Again, it was taken through a range of motion. There was no impingement noted. The shoulder was stable. At this point, I proceeded with closure. The shoulder was thoroughly irrigated with sterile saline solution with antibiotic added. A deep drain was placed deep to the deltoid muscle. I did feel for the axillary nerve which was readily palpable and the TUG test was normal as well. I then again thoroughly irrigated the joint deep. I then placed approximately 500 mg of vancomycin powder deep in the wound. I then closed the clavipectoral fascia with 0 Vicryl interrupted suture. Again the wound was thoroughly irrigated with sterile saline solution via pulse lavage. Again another 500 mg of vancomycin powder was then placed subcutaneous. Subcutaneous tissue was then closed with 2-0 Vicryl interrupted suture and the skin was closed with 3-0 running Quill suture. Dermabond was applied to the incision. Sterile compressive dressing was then applied. The patient's right upper extremity was placed into a standard sling. All sponge and needle counts were deemed correct prior to closure. The patient tolerated the procedure without apparent complication. She was transferred recovery room in stable condition. MMODL / IJN: [id number] /
[2018-08-11] MEDS ORDERED: HYDROcodone/APAP 7.5-325MG 1 EACH TAB PO PRN (09:25)
[2018-08-11] MEDS ORDERED: HYDROcodone/APAP 10-325MG 1 EACH TAB PO PRN (09:25)
--- NOTE | 2018-08-11 09:28 | P.PN ---
Subjective Progress Note Date: 08/11/18 Principal diagnosis: Right Shoulder reverse TSA Patient is seen at bedside this morning. She is postop day #1 from right shoulder reverse TSA. She has pain at the surgical site as expected but denies any new complaints. She denies numbness, tingling or calf pain. Review of systems is negative for fever, chills, chest pain, shortness of breath or other Objective - Vital Signs Vital signs: Vital Signs Temp 99.0 F 08/11/18 07:20 Pulse 86 08/11/18 08:00 Resp 14 08/11/18 08:00 BP 107/53 08/11/18 07:20 Pulse Ox 91 L 08/11/18 07:20 Intake & Output 08/10/18 08/11/18 08/11/18 18:59 06:59 18:59 Intake Total 907 580 180 Output Total 200 130 Balance 707 450 180 Intake: IV 907 Oral 580 180 Output: Drainage 130 Right Shoulder 130 Estimated Blood Loss 200 Other: # Voids 1 - Exam Inspection reveals a benign surgical wound. There is no active bleeding or drainage. Neurovascular status is intact throughout the lower extremity with motor and sensation fully intact. Calf is soft and nontender. 2+ dorsalis pedis pulse and less than 2 second cap refill is present. - Constitutional General appearance: Present: no acute distress - Labs CBC & Chem 7: 08/11/18 07:34 Labs: Abnormal Lab Results - Last 24 Hours (Table) 08/11/18 Range/Units 07:34 RBC 3.43 L (3.80-5.40) m/uL Hct 33.9 L (34.0-46.0) % Assessment and Plan (1) Osteoarthritis of right shoulder Narrative/Plan: She will continue with routine postop orthopedic protocol including pain management, wound care, DVT prophylaxis and medical management. Expect that she will transfer to home tomorrow Current Visit: Yes Status: Acute Priority: Medium Code(s): M19.011 - PRIMARY OSTEOARTHRITIS, RIGHT SHOULDER SNOMED Code(s): [id number] Time with Patient: Less than 30
[2018-08-11] MEDS: HYDROcodone/APAP 10-325MG 1 EACH TAB PO PRN ×3 (10:59→20:51)
[2018-08-11] MEDS: ATENOLOL 25 MG TAB PO SCH (11:03)
[2018-08-11] MEDS: GABAPENTIN 300 MG CAP PO SCH ×3 (11:03→20:51)
--- NOTE | 2018-08-11 12:51 | P.CONS ---
History of Present Illness - Reason for Consult Consult date: 08/11/18 Medical management - History of Present Illness This is a 78-year-old female patient of Dr. Lorne Alan with past medical history of asthma, inactive, hypertension, osteoarthritis, breast cancer in 2002 status post radiation and lumpectomy, stroke and TIA with slight right-sided weakness, chronic low back and leg pain. Patient has been brought into the hospital under the care of Dr. Gudino and is status post right reverse total shoulder arthroplasty and right open proximal biceps tenodesis. Patient states that she has had pain off and through the night. She has had a peripheral nerve block was done by anesthesia and has [place] or Dilaudid for pain control. She denies having any bowel movement but she did have one yesterday before arrival. She denies having diarrhea. Her vital signs are stable, pulse ox is 91% on room air. Incentive spirometry will be added. She has been afebrile. Hemoglobin is 11.4. Home medications of been resumed including atenolol with parameters. Review of Systems All systems: negative Constitutional: Denies chills, Denies fatigue, Denies fever, Denies poor appetite, Denies weakness Eyes: denies blurred vision, denies pain Ears, nose, mouth and throat: Denies dysphagia, Denies headache, Denies mouth pain, Denies nasal congestion, Denies nasal discharge, Denies sore throat, Denies vertigo Cardiovascular: Denies chest pain, Denies decreased exercise tolerance, Denies dyspnea on exertion, Denies edema, Denies leg edema, Denies lightheadedness, Denies palpitations, Denies paroxysmal nocturnal dyspnea, Denies shortness of breath, Denies syncope Respiratory: Denies cough, Denies cough with sputum, Denies dyspnea, Denies excessive sputum, Denies hemoptysis, Denies home oxygen, Denies sleep apnea, Denies wheezing Gastrointestinal: Denies abdominal pain, Denies diarrhea, Denies loss of appetite, Denies melena, Denies nausea, Denies vomiting Genitourinary: Denies dysuria, Denies hematuria, Denies urgency, Denies urinary frequency Musculoskeletal: Denies myalgias Musculoskeletal: right: shoulder pain Integumentary: Reports wounds, Denies pruritus, Denies rash Neurological: Denies balance difficulties, Denies change in mentation, Denies confusion, Denies gait dysfunction, Denies headaches, Denies migraines, Denies numbness, Denies seizures, Denies weakness, Denies visual changes Psychiatric: Denies anxiety, Denies depression Endocrine: Denies fatigue, Denies weight change Past Medical History Past Medical History: Asthma, Cancer, CVA/TIA, Hypertension, Neurologic Disorder , Osteoarthritis (OA), Pneumonia Additional Past Medical History / Comment(s): Hx. breast cancer 2001 - had radiation, hx. skin cancer, scoliosis, stroke 25 yrs. ago, TIA 10 yrs ago- slight right sided weakness, TIA 03/23/18. Severe chronic bilateral leg and back pain. Pneumonia yrs ago. History of Any Multi-Drug Resistant Organisms: None Reported Past Surgical History: Back Surgery, Bladder Surgery, Bowel Resection, Breast Surgery, Hysterectomy, Joint Replacement Additional Past Surgical History / Comment(s): Left breast lumpectomy, bilateral knee replacements, back surgery x 2, bilateral cataract surgery, bladder suspension, total left shoulder, left hip replacement. Past Anesthesia/Blood Transfusion Reactions: No Reported Reaction Additional Past Anesthesia/Blood Transfusion Reaction / Comm: MILD CLAUSTERPHOBIA. Past Psychological History: No Psychological Hx Reported Smoking Status: Never smoker Past Alcohol Use History: Rare Additional Past Alcohol Use History / Comment(s): Patient is a lifelong nonsmoker. No illicit drug use. Rare alcohol use. Past Drug Use History: None Reported - Past Family History Mother Family Medical History: Dementia, Hypertension Additional Family Medical History / Comment(s): Mother at age 93 from Alzheimer's. Father Family Medical History: No Reported History Additional Family Medical History / Comment(s): HEART PROBLEMS, NOT SURE EXACTLY WHAT. Father at age 94 with history of coronary artery disease. Brother(s) Family Medical History: Cancer Additional Family Medical History / Comment(s): Patient has 2 brothers and one has from leukemia at age 37. One is alive with no major medical problems. Daughter(s) Additional Family Medical History / Comment(s): Patient has 2 sons and 2 daughters. One daughter is being workup for GI disorder in [place]. Medications and Allergies Home Medications Medication Instructions Recorded Confirmed Type Atenolol [Tenormin] 25 mg PO QAM 02/19/16 08/10/18 History Gabapentin [Neurontin] 300 mg PO TID 02/19/16 08/10/18 History traMADol HCL [Ultram] 25 mg PO TID PRN 02/19/16 08/10/18 History HYDROcodone/APAP 10-325MG [[place] 1 tab PO Q4HR PRN #42 tab 08/11/18 Rx 10-325] Allergies Allergy/AdvReac Type Severity Reaction Status Date / Time bee pollen Allergy Anaphylaxis Verified 08/02/18 10:24 Penicillins Allergy Anaphylaxis Verified 08/02/18 10:24 cortisone AdvReac depressed Verified 08/02/18 10:24 steroids Allergy Nausea Uncoded 08/02/18 10:24 diarrhea Physical Exam Vitals: Vital Signs Temp Pulse Pulse Resp BP BP BP 08/11/18 00:01 97.8 F 76 94/56 08/10/18 20:28 97.9 F 85 16 105/65 08/10/18 17:29 69 136/81 08/10/18 17:15 74 93/50 08/10/18 16:58 67 107/75 08/10/18 16:22 67 118/57 08/10/18 16:07 67 129/63 08/10/18 15:52 62 133/69 08/10/18 15:37 66 110/58 08/10/18 15:22 97.8 F 69 125/70 08/10/18 15:01 69 16 135/72 08/10/18 14:45 74 16 140/72 08/10/18 14:30 76 16 156/70 08/10/18 14:19 96.8 F L 82 12 173/81 08/10/18 11:03 98.8 F 66 18 182/81 Pulse Ox 08/11/18 00:01 93 L 08/10/18 20:28 94 L 08/10/18 17:29 96 08/10/18 17:15 94 L 08/10/18 16:58 95 08/10/18 16:22 99 08/10/18 16:07 100 08/10/18 15:52 100 08/10/18 15:37 99 08/10/18 15:22 99 08/10/18 15:01 98 08/10/18 14:45 97 08/10/18 14:30 98 08/10/18 14:19 98 08/10/18 11:03 96 Intake and Output 08/10/18 08/10/18 08/11/18 14:59 22:59 06:59 Intake Total 907 100 480 Output Total 200 130 Balance 707 -30 480 Intake: IV 907 Oral 100 480 Output: Drainage 130 Right Shoulder 130 Estimated Blood Loss 200 Other: # Voids 1 1 Gen: This is a 78-year-old female. She is sitting up in bed and appears to be comfortable. Patient is in no acute distress. HEENT: Head is atraumatic, normocephalic. Pupils equal, round. Sclerae is anicteric. Conjunctiva pink. Mucous membranes of the mouth are slightly dry. NECK: Supple. No JVD. No lymphadenopathy. No thyromegaly. LUNGS: Clear to auscultation. No wheezes or rhonchi. No intercostal retractions. HEART: Regular rate and rhythm. No murmur. ABDOMEN: Soft. Bowel sounds are present. No masses. No tenderness. EXTREMITIES: No pedal edema. No calf tenderness. Dorsalis pedis palpable bilaterally. To the right shoulder patient has dressing in place NEUROLOGICAL: Patient is awake, alert and oriented x3. Cranial nerves 2 through 12 are grossly intact. Results CBC & Chem 7: 08/11/18 07:34 Assessment and Plan Plan: 1. Osteoarthritis right shoulder status post right reverse total shoulder arthroplasty. Continue current pain management per orthopedics, physical therapy and occupational therapy, incentive spirometry added to reduce incidence of atelectasis and hospital-acquired pneumonia. 2. Hypertension. Continue atenolol 25 mg every morning and hold for systolic less than 110. 3. History of CVA and TIA, stable. No new symptoms. 4. Chronic back pain. Continue pain management. 5. History of breast cancer status post lumpectomy and radiation, stable. 6. Asthma, inactive. Discharge plan: Return home Impression and plan of care have been directed as dictated by the signing physician. Michaela Vaca nurse practitioner acting as scribe for signing physician.
[2018-08-12 01:21] VITALS: RESP 16; TEMP 98.4
[2018-08-12] MEDS: HYDROcodone/APAP 7.5-325MG 1 EACH TAB PO PRN ×2 (04:19→09:42)
[2018-08-12 07:14] VITALS: BP 105/66
[2018-08-12] MEDS: GABAPENTIN 300 MG CAP PO SCH (07:14)
[2018-08-12] MEDS: ATENOLOL 25 MG TAB PO SCH (07:14)
[2018-08-12] MEDS: LACTATED RINGERS 1,000 ML IV SCH ×2 (07:15)
[2018-08-12 08:44] LABS: Anion Gap 7 mmol/L; Blood Urea Nitrogen 11 mg/dL (7-17); Calcium 8.2 mg/dL (8.4-10.2); Carbon Dioxide 28 mmol/L (22-30); Chloride 101 mmol/L (98-107); Glucose 103 mg/dL (74-99); Potassium 2.9 mmol/L (3.5-5.1); Sodium 136 mmol/L (137-145)
[2018-08-12 08:54] LABS: Basophils % (A) 0 %; Eosinophils # (A) 0.2 k/uL (0-0.7); Eosinophils % (A) 3 %; Lymphocytes # (A) 1.4 k/uL (1.0-4.8); Lymphocytes % (A) 16 %; MCH 32.9 pg (25.0-35.0); MCHC 33.4 g/dL (31.0-37.0); MCV 98.5 fL (80.0-100.0); Mean Platelet Volume 7.2; Monocytes # (A) 0.7 k/uL (0-1.0); Monocytes % (A) 8 %; Neutrophils # (A) 6.4 k/uL (1.3-7.7); Neutrophils % (A) 72 %; Platelet Count 216 k/uL (150-450); RBC 3.35 m/uL (3.80-5.40); RDW 12.7 % (11.5-15.5); WBC 8.9 k/uL (3.8-10.6)
[2018-08-12] MEDS ORDERED: Potassium Replacement Protocol 1 EACH MISC MISCELLANE PRN (09:11)
[2018-08-12 09:18] VITALS: PULSE 76
--- NOTE | 2018-08-12 09:26 | P.DS ---
Providers Date of admission: 08/10/18 09:58 Expected date of discharge: 08/12/18 Attending physician: Jason Gudino Consults: 08/10/18 14:09 Consult Physician Routine Consulting Provider: Megha Flores Consult Reason/Comments: post op medical management Do you want consulting provider notified?: Yes Primary care physician: Lorne Alan - Discharge Diagnosis(es) (1) Status post total replacement of right shoulder Current Visit: Yes Status: Acute (2) Osteoarthritis of right shoulder Current Visit: Yes Status: Acute Priority: Medium Hospital Course: This is a pleasant 78-year-old female last seen in our office with complaints of right shoulder pain. Patient has known history of degenerative arthritis of the right shoulder and presented to discuss options. After discussion and consideration, patient elected to proceed with a total shoulder arthroplasty of the right shoulder. The patient was seen preoperatively and medically cleared for surgery by her primary care physician. The patient was admitted to [facility] and underwent right total shoulder arthroplasty on 08/10/[address] Gudino. The procedure was performed without complications or sequelae. The patient has done well postoperatively. The patient was seen and evaluated at bedside today and denies any new complaints. Pain is reasonably controlled. Dressing is clean dry and intact. Incision looks fine with no erythema or active drainage. The patient has full wrist and finger motion without difficulty. Patient's right upper extremity is neurovascular intact. Patient is orthopedically stable for discharge to home today. Pertinent Studies: Laboratory Tests 08/12/18 08/12/18 06:40 06:40 WBC 8.9 RBC 3.35 L Hgb 11.0 L Hct 33.0 L Sodium 136 L Potassium 2.9 L Creatinine 0.45 L Glucose 103 H Calcium 8.2 L Patient Condition at Discharge: Stable Plan - Discharge Summary Discharge Rx Participant: Yes New Discharge Prescriptions: New HYDROcodone/APAP 10-325MG [[place] 10-325] 1 tab PO Q4HR PRN #42 tab PRN Reason: Pain No Action Atenolol [Tenormin] 25 mg PO QAM traMADol HCL [Ultram] 25 mg PO TID PRN PRN Reason: Pain Gabapentin [Neurontin] 300 mg PO TID Discharge Medication List Atenolol [Tenormin] 25 mg PO QAM 02/19/16 [History] Gabapentin [Neurontin] 300 mg PO TID 02/19/16 [History] traMADol HCL [Ultram] 25 mg PO TID PRN 02/19/16 [History] HYDROcodone/APAP 10-325MG [[place] 10-325] 1 tab PO Q4HR PRN #42 tab 08/11/18 [Rx] Follow up Appointment(s)/Referral(s): Jason Gudino MD [STAFF PHYSICIAN] - 1 Week Activity/Diet/Wound Care/Special Instructions: Keep wound clean and dry Take meds as directed Follow-up with Dr. Gudino in office Maintain sling, Nonweightbearing May shower in 3 days if no bleeding Discharge Disposition: HOME SELF-CARE
[2018-08-12] MEDS: POTASSIUM CHLORIDE ER 20 MEQ TAB.ER PO SCH ×2 (09:39→11:46)
--- NOTE | 2018-08-12 12:27 | P.PN ---
Subjective Progress Note Date: 08/12/18 Principal diagnosis: Patient continued to be hemodynamically stable no major events reported by nursing staff patient stated that she is always hypokalemic and uses potassium supplement at home 1 daily basis and potassium was found to be below 3 this morning See above Objective - Vital Signs Vital signs: Vital Signs Temp 98.4 F 08/12/18 07:00 Pulse 76 08/12/18 07:00 Resp 16 08/12/18 07:00 BP 105/66 08/12/18 07:00 Pulse Ox 92 L 08/12/18 07:00 Intake & Output 08/11/18 08/12/18 08/12/18 18:59 06:59 18:59 Intake Total 462 Balance 462 Intake: Intake, IV Titration 60 Amount Lactated Ringers 1,000 ml 60 @ 20 mls/hr IV .Q24H [facility] Rx#:[id number] Oral 402 Other: Voiding Method Toilet Toilet # Voids 1 4 - Exam Gen.: in stated age, no acute distress Heart: Normal S1-S2 Lungs: Clear to auscultation bilaterally Abdomen: Soft, no tenderness, positive bowel sounds in all 4 quadrant no guarding or rebound Skin: No new rash Psych: Alert and oriented 3 Neuro: No focal deficit - Labs CBC & Chem 7: 08/12/18 06:40 08/12/18 06:40 Labs: Abnormal Lab Results - Last 24 Hours (Table) 08/12/18 08/12/18 Range/Units 06:40 06:40 RBC 3.35 L (3.80-5.40) m/uL Hgb 11.0 L (11.4-16.0) gm/dL Hct 33.0 L (34.0-46.0) % Sodium 136 L (137-145) mmol/L Potassium 2.9 L (3.5-5.1) mmol/L Creatinine 0.45 L (0.52-1.04) mg/dL Glucose 103 H (74-99) mg/dL Calcium 8.2 L (8.4-10.2) mg/dL Microbiology - Last 24 Hours (Table) 08/12/18 00:26 Urine Culture - Preliminary Urine,Clean Catch Assessment and Plan Assessment: 1. Status post right shoulder arthroplasty. 2. Hypertension. 3. Acute on chronic hypokalemia. 4. Chronic back pain. We'll replace potassium have patient's resume her potassium on outpatient basis follow-up with her primary care physician within one week and recheck on her electrolytes patient is agreeable to the current treatment plan and stable from the medical standpoint for discharge. Plan discussed with nursing staff
== END 2018-08-12 12:42 | disposition home or self-care (01) | DRG 483 ==
LOC: 2ORMAIN 09:58 → 4SSUR 14:45
PROVIDERS: ADMIT Orthopaedic Surgery Sports Medicine; ATTEND Orthopaedic Surgery Sports Medicine
PROC: 0RRJ00Z Replacement of Right Shoulder Joint with Reverse Ball and Socket Synthetic Substitute, Open Approach (ICD-10-PCS; principal; 2018-08-10 12:00)
DX: M19.011 Primary osteoarthritis, right shoulder (principal); I69.951 Hemiplegia and hemiparesis following unspecified cerebrovascular disease affecting right dominant side; M75.101 Unspecified rotator cuff tear or rupture of right shoulder, not specified as traumatic; E87.6 Hypokalemia; G89.29 Other chronic pain; I10 Essential (primary) hypertension; J45.909 Unspecified asthma, uncomplicated; M41.9 Scoliosis, unspecified; R26.9 Unspecified abnormalities of gait and mobility; M81.0 Age-related osteoporosis without current pathological fracture; H40.9 Unspecified glaucoma; F41.9 Anxiety disorder, unspecified; M47.9 Spondylosis, unspecified; M54.12 Radiculopathy, cervical region; K57.90 Diverticulosis of intestine, part unspecified, without perforation or abscess without bleeding; M16.10 Unilateral primary osteoarthritis, unspecified hip; F40.240 Claustrophobia; Z85.3 Personal history of malignant neoplasm of breast; Z85.828 Personal history of other malignant neoplasm of skin; Z90.710 Acquired absence of both cervix and uterus; Z92.3 Personal history of irradiation; Z96.642 Presence of left artificial hip joint; Z96.653 Presence of artificial knee joint, bilateral; Z86.010 Personal history of colon polyps; Z90.49 Acquired absence of other specified parts of digestive tract; Z88.0 Allergy status to penicillin; Z79.82 Long term (current) use of aspirin; Z79.899 Other long term (current) drug therapy; Z96.612 Presence of left artificial shoulder joint; Z88.8 Allergy status to other drugs, medicaments and biological substances; Z91.030 Bee allergy status; Z80.6 Family history of leukemia; Z82.0 Family history of epilepsy and other diseases of the nervous system; Z82.49 Family history of ischemic heart disease and other diseases of the circulatory system
CPT/HCPCS: 64415; 80048; 85025; 87040; 87086; 88300

== ENCOUNTER → 2022-07-12 | Outpatient (CLI) | payer MEDICARE ==
--- NOTE | 2022-07-12 15:38 | NM ---
EXAMINATION TYPE: NM bone scan whole body DATE OF EXAM: 07/12/2022 COMPARISON: Thoracolumbar spine and left hip radiographs 06/18/2022. 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 Images acq uired 3 hours post injection. FINDINGS: No abnormal uptake is identified within the appendicular or axial skeleton to suggest metastatic dise ase. There is increased uptake within the bilateral shoulder, bilateral shoulder, bilateral ankles, bilate ral elbows, bilateral wrists, sternoclavicular, and sacroiliac joints consistent with degenerative ch anges. Additional increased uptake within the lower spine related degenerative changes. Photopenic ar ea within the right hip related to total hip arthroplasty. No other photopenic areas or areas of incr eased activity are identified. Physiologic radiotracer activity is demonstrated in the kidneys and bladder. IMPRESSION: 1. Nothing to suggest metastatic disease. 2. Increased uptake within multiple joints and lower spine related to degenerative changes.
== END | disposition home or self-care (01) ==
LOC: RADNMMAIN 10:34
PROVIDERS: ATTEND Physical Medicine & Rehabilitation
DX: R93.7 Abnormal findings on diagnostic imaging of other parts of musculoskeletal system (principal)
CPT/HCPCS: 78306; A9503

== ENCOUNTER → 2022-07-19 | Outpatient (CLI) | payer MEDICARE ==
[2022-07-19 11:07] LABS: Prothrombin Time 10.8 sec (9.0-12.0)
[2022-07-19 11:12] LABS: Partial Thromboplastin Time 21.4 sec (22.0-30.0)
[2022-07-19 16:06] LABS: Albumin 3.7 g/dL (3.8-4.9); Albumin/Globulin Ratio 1.79 (1.60-3.17); Anion Gap 9.2 mmol/L (10.00-18.00); BUN/Creat Ratio 15.53 Ratio (12.00-20.00); Blood Urea Nitrogen 8.8 mg/dL (9.0-27.0); Calcium 8.6 mg/dL (8.7-10.3); Carbon Dioxide 21.1 mmol/L (20.0-27.5); Globulin 2.1 g/dL (1.6-3.3); Non-African American GFR(CKD) 87.1 (60.0-200.0); Potassium 4.2 mmol/L (3.5-5.5); Total Bilirubin 0.3 mg/dL (0.30-1.20); Total Protein 5.7 g/dL (6.2-8.2)
[2022-07-19 16:12] LABS: HCT 41.6 % (37.2-46.3); HGB 13.3 g/dL (12.0-15.0); MCH 31.6 pg (27.0-32.0); MCV 98.8 fL (80.0-97.0); Mean Platelet Volume 10.6 fL (9.5-12.2); NRBC Per 100 WBC 0 /100 WBCS (0.0-0.0); Platelet Count 212 X 10*3/uL (140-440); RBC 4.21 X 10*6/uL (4.10-5.20); RDW 12.9 % (11.5-14.5); WBC 6.31 X 10*3/uL (4.50-10.00)
== END | disposition home or self-care (01) ==
LOC: LABPAT 09:17
PROVIDERS: ATTEND Orthopaedic Surgery
DX: Z01.818 Encounter for other preprocedural examination (principal); Z01.812 Encounter for preprocedural laboratory examination
CPT/HCPCS: 80053; 85027; 85610; 85730; 86850; 86900; 86901; 87070; 87086; 93005

== ENCOUNTER 2022-07-27 10:06 | Observation (INO) | payer MEDICARE ==
[2022-07-21 14:50] VITALS: BMI 28.8
[~2022-07-27 10:06] MED LIST changes: -ACETAMINOPHEN TAB 500 MG TAB PO ONE; +ACETAMINOPHEN TAB 500 MG TAB PO PRN; -CLINDAMYCIN 900 MG in DEXTROSE 5% IN WATER 50 ML IVPB ONE; -DEXAMETHASONE SOD PHOSPHATE 10 MG/ML 1 ML VIAL IV ONE; +DEXAMETHASONE SOD PHOSPHATE 4 MG/ML 1 ML VIAL IV ONE; +GABAPENTIN 300 MG CAP PO PRN; +HYDROmorphone 0.5 MG/0.5 ML SYRINGE IVP PRN; -HYDROmorphone 1 MG/ML 1 ML SYRINGE IVP PRN; -LIDOCAINE 1% 20 ML VIAL (10MG/ML) FOR IV START INTRADERMA PRN; -MELOXICAM 7.5 MG TAB PO ONE; +MELOXICAM 7.5 MG TAB PO PRN; -MIDAZOLAM 2 MG/2 ML VIAL IV PRN; -TRANEXAMIC ACID 1,000 MG in SODIUM CHLORIDE 0.9% 50 ML IVPB ONE; +TRANEXAMIC ACID IN NACL,ISO-OS 1,000 MG in SALINE 1 100ML.BAG IVPB PRN; -fentaNYL (PF) 50 MCG/ML 2 ML AMP IV PRN
[2022-07-27] MEDS: LACTATED RINGERS 1,000 ML IV SCH (10:55)
[2022-07-27] MEDS ORDERED: NALOXONE 0.4 MG/ML 1 ML VIAL IV PRN (11:20)
[2022-07-27] MEDS ORDERED: MAGNESIUM HYDROXIDE 2,400 MG/10 ML CUP PO PRN (11:20)
[2022-07-27] MEDS ORDERED: ONDANSETRON 4 MG/2 ML VIAL IVP PRN (11:20)
[2022-07-27] MEDS ORDERED: HYDROmorphone 0.5 MG/0.5 ML SYRINGE IVP PRN ×2 (11:20)
[2022-07-27] MEDS ORDERED: LIDOCAINE 2% INJ 20 MG/ML (2 ML VIAL) ONE (11:22)
[2022-07-27] MEDS ORDERED: fentaNYL (PF) 50 MCG/ML 2 ML AMP ONE (11:22)
[2022-07-27] MEDS ORDERED: PROPOFOL 10 MG/ML 20 ML VIAL IV ONE (11:22)
[2022-07-27] MEDS ORDERED: TRANEXAMIC ACID IN NACL,ISO-OS 1,000 MG/100 ML BAG ONE (11:22)
[2022-07-27] MEDS ORDERED: ceFAZolin 1,000 MG in SODIUM CHLORIDE 0.9% 1,000 ML IRRIGATION ONE (11:27)
[2022-07-27] MEDS ORDERED: ROPIVACAINE 5 MG/ML 30 ML VIAL MISCELLANE ONE ×2 (12:05→12:35)
--- NOTE | 2022-07-27 12:43 | P.OP ---
Date of Procedure: 07/27/22 Preoperative Diagnosis: Severe osteoarthritis left hip Postoperative Diagnosis: Severe osteoarthritis left hip Procedure(s) Performed: Left total arthroplasty with a direct anterior approach Implants: [employer] Polarstem standard size 1 [employer] R3, 3 hole hemispherical acetabular shell, 48 mm [employer] Reflection 6.5 mm cancellus screw, 20 mm 2 [employer] R3, XLPE 20 acetabular liner [employer] Oxinium femoral head 32 m, +4 All components were press-fit. The articulation is Oxinium on polyethylene. Anesthesia: spinal Surgeon: Lukas Collins Can Solderer #1: Araceli Guillaume Estimated Blood Loss (ml): 350 Pathology: other (Femoral head) Condition: stable Disposition: PACU Indications for Procedure: After failure of conservative treatment we discussed the surgical and nonsurgical treatment options at length. Patient wishes to proceed with a total hip arthroplasty with a direct anterior approach. Complications specific to this procedure were discussed at length, including but not limited to infection, leg length discrepancy, dislocation, nerve injury, and fracture. Covid-19 was also discussed at length with the patient, and they are aware of the current policies and procedures. The patient was given the option of delaying surgery, but they elect to proceed knowing these risks. Patient is aware of all these complications and informed consent was obtained Operative Findings: The operative findings are consistent with severe osteoarthritis of the left hip Description of Procedure: Patient was seen and evaluated in the preoperative area and the consent was reviewed. The operative site was marked with a skin marker. The patient was then brought to the operating room and given preoperative antibiotics intrav enously. 1 g of Tranexamic acid was also given intravenously. A spinal anesthetic was administered by the anesthesia department. The patient was then placed on the [place] table with the bony prominences well-padded. The hip area was then prepped with a ChloraPrep solution and draped in the usual sterile fashion. A universal timeout was then performed, which confirmed the patient's name, surgical site, ALLERGIES, and procedure being performed on the consent. Next the incision site was located at 1 cm distal and 2 cm lateral to the anterior superior iliac spine. The skin and subcutaneous tissues were sharply incised. Incision was carefully dissected down to the fascia overlying the tensor fascia deirdre muscle. This fascia was then incised in line with the incision. Care was taken to stay laterally in order to avoid injuring the lateral femoral cutaneous nerve. Next, using blunt finger dissection, the tensor fascia deirdre muscle was dissected off its investing fascia. The muscle was then carefully retracted laterally with a cobra retractor over the lateral neck of the femur. Next, the circumflex vessels were identified and cauterized using the AquaMantis device. The anterior hip capsule was then exposed. The capsule was then opened and an inverted T fashion. Cobra retractors were then placed intracapsularly. The retractors were maintained intracapsular throughout the procedure. The proximal femur was then visualized. Fluoroscopic x-rays were then taken in order to evaluate the preoperative leg lengths. A small amount of traction was placed on the leg. The femoral neck was then osteotomized at the appropriate level above the lesser trochanter. A small wedge of bone was then removed from the remaining femoral head. Next, using a corkscrew the femoral head was removed from the acetabulum. On gross visual inspection, the femoral head had complete loss of articular cartilage and multiple periarticular osteophytes. The femoral head was then measured. Attention was then turned to the acetabulum. The acetabulum was exposed and any remaining labrum was excised. Sequential reaming of the acetabulum was performed using fluoroscopic guidance until there was a good bed of bleeding cancellus bone. When the appropriate size was reached, a trial was then placed. The position and fit of the trial was checked with fluoroscopy. The trial was then removed. Then, using fluoroscopic guidance, the final implant was impacted at 20 of anteversion and 40 of abduction, and fully seated in the acetabulum. 2 screws were then placed in the acetabulum. Again fluoroscopy was used to check position of the screws. Next, the liner was then impacted, with a 20 elevated liner located in the anterior superior quadrant. Component locking was confirmed. Attention was then directed to the femur. With the aid of the [place] table, the femur was externally rotated to approximately 130, extended, and adducted under the opposite leg. A side hook was then placed under the proximal femur, and the side hook elevator was used to elevate the proximal femur while releasing the capsule. Retractors were then placed. A capsular release was performed, as well as a release of the conjoined tendon, which afforded excellent visualization of the proximal femur. Next, a box osteotome was used to lateralize the proximal femur. A hand tube bender was then used to locate the femoral canal. Sequential broaching was then performed with appropriate size which afforded excellent fixation in the proximal femur. A trial was then placed with appropriate head and neck, and the hip was gently reduced with the aid of the [place] table. Fluoroscopy was then used to check position of the components, as well as to evaluate the leg lengths and offset. The leg lengths and offset were measured as closely as possible to ensure stability of the hip. The hip was then gently dislocated and the trials were then removed. Final implants were then impacted and the hip was again reduced. Final fluoroscopic x-rays confirmed that the components were in anatomic position. The leg lengths and offset were measured and were found to coincide with the trial measurements. The hip was also taken through range of motion, and found to be stable. The hip was then copiously irrigated with antibiotic solution with pulsatile lavage. The hip was then irrigated with Irrisept solution. The soft tissues were then injected with a ropivacaine solution. A second dose of 1 g of Tranexamic acid was also given intravenously. The fascia was then closed with 2-0 strata fix suture. The subcutaneous tissue was closed with 3-0 Vicryl. The subcuticular tissue was closed with 3-0 strata fix suture. The skin was then closed with Exofin skin glue. After the glue and dried, and Optifoam silver impregnated dressing was applied. The patient was then transferred to the recovery room in stable condition. The assistant hvac mechanic VALENTINO Lara was required due to the complexity of surgery, and the need for skilled ophthalmology surgical technician for positioning, draping, exposure, retraction, and closure of the wound.
[2022-07-27] MEDS ORDERED: LACTATED RINGERS 1,000 ML IV ONE (13:52)
--- NOTE | 2022-07-27 14:17 | XR ---
EXAMINATION TYPE: XR Hip Limited LT DATE OF EXAM: 07/27/2022 COMPARISON: None HISTORY: Posthip surgery TECHNIQUE: Left hip is examined in a single AP view. FINDINGS: Left hip and acetabular component of the place. Postsurgical soft tissue changes are eviden t. No acute fractures are evident. IMPRESSION: 1. No Acute fracture post left hip replacement
--- NOTE | 2022-07-27 14:39 | XR ---
Fluoroscopy INDICATION: Pain FINDINGS: Fluoroscopy time: Not recorded seconds. Images obtained: 4. IMPRESSIONS: 1. Documentation of fluoroscopy.
[2022-07-27] MEDS ORDERED: SODIUM CHLORIDE 0.9% 1,000 ML IV ONE (14:58)
--- NOTE | 2022-07-27 15:25 | FL ---
Fluoroscopy INDICATION: Pain FINDINGS: Fluoroscopy time: 28 seconds. Images obtained: 0. IMPRESSIONS: 1. Documentation of fluoroscopy.
[2022-07-27] MEDS ORDERED: CLINDAMYCIN 900 MG in DEXTROSE 5% IN WATER 50 ML IVPB SCH ×2 (16:00)
[2022-07-27] MEDS: SODIUM CHLORIDE 0.9% 1,000 ML IV SCH (16:17)
[2022-07-27] MEDS: HYDROmorphone 0.5 MG/0.5 ML SYRINGE IVP PRN (17:28)
[2022-07-27] MEDS: GABAPENTIN 300 MG CAP PO SCH (21:27)
[2022-07-27] MEDS: SENNOSIDES-DOCUSATE SODIUM 1 EACH TAB PO SCH (21:27)
[2022-07-27] MEDS: ASPIRIN 81 MG PO SCH (21:27)
[2022-07-27] MEDS: HYDROcodone/APAP 7.5-325MG 1 EACH TAB PO PRN (21:31)
[2022-07-28] MEDS: SODIUM CHLORIDE 0.9% 1,000 ML IV SCH (03:43)
[2022-07-28] MEDS: LACTATED RINGERS 1,000 ML IV SCH (06:17)
[2022-07-28] MEDS: GABAPENTIN 300 MG CAP PO SCH ×4 (07:51→20:13)
[2022-07-28] MEDS: ASPIRIN 81 MG PO SCH ×2 (07:51→20:13)
--- NOTE | 2022-07-28 08:13 | XR ---
EXAMINATION TYPE: XR Hip Limited LT DATE OF EXAM: 07/28/2022 CLINICAL HISTORY: Left hip pain, hip replacement surgery yesterday. TECHNIQUE: Single AP portable view of left hip is obtained immediately postoperatively. COMPARISON: Left hip x-ray one day earlier. FINDINGS: Metallic hardware from left hip arthroplasty is redemonstrated and appears stable and [employer] in alignment and position. Improving adjacent subcutaneous gas noted. IMPRESSION: As above.
[2022-07-28] MEDS: HYDROmorphone 0.5 MG/0.5 ML SYRINGE IVP PRN ×2 (08:21→21:56)
[2022-07-28 10:40] LABS: Basophils # (A) 0.03 X 10*3/uL (0.00-0.10); Basophils % (A) 0.3 %; Eosinophils # (A) 0.04 X 10*3/uL (0.04-0.35); Eosinophils % (A) 0.4 %; HCT 35.6 % (37.2-46.3); HGB 11.7 g/dL (12.0-15.0); Immature Grans, Automated 0.2 %; Lymphocytes # (A) 2.31 X 10*3/uL (0.90-5.00); Lymphocytes % (A) 22.8 %; MCH 32.8 pg (27.0-32.0); MCHC 32.9 g/dL (32.0-37.0); MCV 99.7 fL (80.0-97.0); Mean Platelet Volume 10.2 fL (9.5-12.2); Monocytes # (A) 1.27 X 10*3/uL (0.20-1.00); Monocytes % (A) 12.5 %; NRBC Per 100 WBC 0 /100 WBCS (0.0-0.0); Neutrophils # (A) 6.46 X 10*3/uL (1.80-7.70); Neutrophils % (A) 63.8 %; Platelet Count 217 X 10*3/uL (140-440); RBC 3.57 X 10*6/uL (4.10-5.20); WBC 10.13 X 10*3/uL (4.50-10.00)
[2022-07-28] MEDS: HYDROcodone/APAP 7.5-325MG 1 EACH TAB PO PRN ×2 (12:13→17:18)
--- NOTE | 2022-07-28 12:29 | P.CONS ---
History of Present Illness - Reason for Consult Consult date: 07/28/22 Medical management postop left hip arthroplasty - History of Present Illness This is an 82-year-old female who was recently admitted under orthopedic services for left total hip arthroplasty with Dr. Collins. Patient follows with Dr. Lorne Alan in the outpatient setting and underwent presurgical screening and labs were reviewed and within normal limits. Patient does have a past medical history of asthma, breast cancer in 2001, TIA with some right-sided weakness residual, hypertension, osteoarthritis. Patient denies smoking and other illicit drug use or alcohol. Blood pressures are currently soft at 99/60 and recommend to continue holding blood pressure medications. Patient is also receiving IV pain medications along with oral and is maintained on aspirin twice a day. Patient did have a low-grade temp of 100.1 last night and currently CBC is pending. Patient is on room air and denies chest pain or shortness of breath. Hip x-ray evaluation shows hardware noted in correct placement. Patient to be seen and evaluated by physical therapy today. WBC mildly reactive at 10.13 hemoglobin is stable at 11.7. Review Of Systems: Constitutional: No fever, no chills, no night sweats. No weight change. No weakness, fatigue or lethargy. No daytime sleepiness. EENT: No headache. No blurred vision or double vision, no loss of vision. No loss of Hearing, no ringing in the ears, no dizziness. No nasal drainage or congestion. No epistaxis. No sore throat. Lungs: No shortness of breath, cough, no sputum production. No wheezing. Cardiovascular: No chest pain, no lower extremity edema. No palpitations. No paroxysmal nocturnal dyspnea. No orthopnea. No lightheadedness or dizziness. No syncopal episodes. Abdominal: No abdominal pain. No nausea, vomiting. No diarrhea. No constipation. No bloody or tarry stools.. No loss of appetite. Reports passing gas with no bowel movement yet Genitourinary: No dysuria, increased frequency, urgency. No urinary retention. Musculoskeletal: No myalgias. Reports some muscle weakness, reports gait dysfunction, no frequent falls. No back pain. No neck pain. Integumentary: No wounds, no lesions. No rash or pruritus. No unusual bruising. No change in hair or nails. Neurologic: No aphasia. No facial droop. No change in mentation. No head injury. No headache. No paralysis. No paresthesia. Psychiatric: No depression. No anxiety. No mood swings. Endocrine: No abnormal blood sugars. No weight change. No excessive sweating or thirst. No cold intolerance. PHYSICAL EXAMINATION: GENERAL: The patient is alert and oriented x4, Well developed, well nourished. Obese. HEENT: Pupils are round and equally reacting to light. EOMI. no scleral icterus. No conjunctival pallor. Normocephalic, atraumatic. No pharyngeal erythema. No thyromegaly. CARDIOVASCULAR: S1 and S2 muffled PULMONARY: diminished breath sounds bilaterally with no wheezing or rhonchi noted. ABDOMEN: soft. Nontender on exam. obese. non-distended, normoactive bowel sounds. No palpable organomegaly. MUSCULOSKELETAL: No joint swelling or deformity. EXTREMITIES: No cyanosis, clubbing, or pedal edema. Left hip anterior dressing is dry and intact with no surrounding redness or swelling and soft on palpation NEUROLOGICAL: Gross neurological examination did not reveal any focal deficits. Diffuse weakness SKIN: No rashes. Assessment: Status post left total hip arthroplasty, postop day 1 Mild leukocytosis most likely reactive as patient is afebrile denies shortness of breath or dysuria History of hypertension, currently soft blood pressures History of osteoarthritis history of TIA history of asthma, not in exacerbation GI prophylaxis DVT prophylaxis Full code Plan: Recommend to continue with current medications and management per orthopedic se rvices. Patient has been seen and evaluated by PT/OT therapy recommending pain management and home with home care. Patient does have a walker and plans to return home with . Patient currently maintained on IV narcotics and [place] recommend to limit the use of IV narcotics given the patient's age. Patient is tolerating and reports pain that is currently uncontrolled. Patient was up and walking from the bathroom back to bed requiring some assistance getting into bed lifting her leg otherwise was able to walk with standby assist with walker. Incentive spirometer ordered and encourage the patient to continue using at least 10 times every hour while awake. Patient was maintained on IV hydration and is tolerating diet and drinking and voiding with no difficulties, would recommend decreasing the amount of fluids. Recommend to hold blood pressure medication and monitor blood pressures with possible discharge in 24 hours. Patient encouraged to follow-up with her primary care provider Dr. Alan on discharge. We will continue to follow along with orthopedics during hospitalization. Thank you kindly for this consultation. The impression and plan of care has been dictated by Eryn Zuñiga, nurse practitioner as directed. Dr. Gema MD I have performed a history and examination and MDM of this patient, discussed the same with the dictator, and agree with the dictator's assessment and plan as written ,documented as a scribe. Based on total visit time, I have performed more than 50% of the visit. Any additional findings or plans will be noted. Past Medical History Past Medical History: Asthma, Cancer, CVA/TIA, Hypertension, Osteoarthritis (OA) Additional Past Medical History / Comment(s): hx. breast cancer 2001-had radiation, hx. skin cancer, scoliosis, stroke 25 yrs. ago, TIA 10 yrs ago-slight right sided weakness History of Any Multi-Drug Resistant Organisms: None Reported Past Surgical History: Back Surgery, Bladder Surgery, Bowel Resection, Breast Surgery, Hysterectomy, Joint Replacement Additional Past Surgical History / Comment(s): left breast lumpectomy, both knees repolaced, back surg. x 2, cataract surg, bladder suspensioN, TOTAL LT SHOULDER. Past Anesthesia/Blood Transfusion Reactions: No Reported Reaction Additional Past Anesthesia/Blood Transfusion Reaction / Comm: CLAUSTERPHOBIA Past Psychological History: No Psychological Hx Reported Smoking Status: Never smoker Past Alcohol Use History: Rare Additional Past Alcohol Use History / Comment(s): Patient is a lifelong nonsmoker. No illicit drug use. Rare alcohol use. Past Drug Use History: None Reported - Past Family History Mother Family Medical History: Dementia, Hypertension Additional Family Medical History / Comment(s): Mother at age 93 from Alz heimer's. Father Family Medical History: Coronary Artery Disease (CAD) Additional Family Medical History / Comment(s): Father at age 94 with history of coronary artery disease. Brother(s) Family Medical History: Cancer Additional Family Medical History / Comment(s): one brother from leukemia at age 37. Daughter(s) Family Medical History: No Reported History Additional Family Medical History / Comment(s): . Medications and Allergies Home Medications Medication Instructions Recorded Confirmed Type traMADol HCL [Ultram] 50 mg PO TID PRN 02/19/16 07/21/22 History Acetaminophen/Diphenhydramine 1 tab PO HS 07/21/22 07/27/22 History [Tylenol PM 500-25mg] Gabapentin 600 mg PO QID 07/21/22 07/27/22 History Multivit with Calcium,Iron,Min 1 each PO DAILY 07/21/22 07/21/22 History [Women's Multivitamin] atenoloL [Tenormin] 100 mg PO DAILY 07/21/22 07/27/22 History Aspirin [Adult Low Dose Aspirin EC] 81 mg PO BID 30 Days #60 tab 07/27/22 Rx HYDROcodone/APAP 7.5-325MG [[place] 1 - 2 tab PO Q6H PRN #32 tab 07/27/22 Rx 7.5-325] Sennosides [Senokot] 2 tab PO DAILY PRN #60 tablet 07/27/22 Rx Allergies Allergy/AdvReac Type Severity Reaction Status Date / Time bee pollen Allergy Anaphylaxis Verified 07/27/22 10:34 Penicillins Allergy Anaphylaxis Verified 07/27/22 10:34 cortisone AdvReac depressed Verified 07/27/22 10:34 steroids Allergy Nausea Uncoded 07/27/22 10:34 diarrhea Physical Exam Vitals: Vital Signs Temp Pulse Resp BP Pulse Ox 07/28/22 03:43 98.4 F 07/28/22 01:22 100.1 F H 82 17 99/60 94 L 07/27/22 19:47 98.1 F 69 17 107/68 90 L 07/27/22 14:46 16 118/59 99 07/27/22 14:32 54 L 16 112/54 99 07/27/22 14:16 52 L 16 134/66 100 07/27/22 14:04 54 L 16 146/61 98 07/27/22 13:49 54 L 16 153/61 100 07/27/22 13:35 52 L 16 93/42 99 07/27/22 13:20 58 L 16 92/43 99 07/27/22 13:02 97.2 F L 65 16 94/52 100 07/27/22 11:08 186/78 07/27/22 10:37 97.0 F L 68 16 199/90 98 Intake and Output 07/27/22 07/28/22 07/28/22 22:59 06:59 14:59 Intake Total 1390 Balance 1390 Intake: Intake, IV Titration 940 Amount Sodium Chloride 0.9% 1, 840 000 ml @ 70 mls/hr IV . [id number] [facility] Rx#:[id number] ceFAZolin 2 gm In Sodium 100 Chloride 0.9% 50 ml @ 100 mls/hr IVPB Q8H [facility] Rx#: [id number] Oral 450 Other: Voiding Method Toilet # Voids 1 2 # Bowel Movements 0 Weight 73.3 kg Results CBC & Chem 7: 07/28/22 07:06
--- NOTE | 2022-07-28 12:48 | P.PN ---
Subjective Progress Note Date: 07/28/22 Principal diagnosis: Primary osteoarthritis left hip. Status post total left hip arthroplasty with direct anterior approach. This is an 82-year-old female who is postoperative day #1 status post total left hip arthroplasty with direct anterior approach. She states that she is having difficulty with ambulation and feels that her leg is moving slowly. Her vital signs are stable. Objective - Vital Signs Vital signs: Vital Signs Temp 97.5 F L 07/28/22 08:00 Pulse 85 07/28/22 08:00 Resp 18 07/28/22 08:00 BP 95/61 07/28/22 08:00 Pulse Ox 97 07/28/22 08:00 FiO2 Intake & Output 07/27/22 07/28/22 07/28/22 18:59 06:59 18:59 Intake Total 1101 1390 Output Total 350 Balance 751 1390 Weight 73.3 kg Intake: IV 1101 Intake, IV Titration 940 Amount Sodium Chloride 0.9% 1, 840 000 ml @ 70 mls/hr IV . [id number] [facility] Rx#:[id number] ceFAZolin 2 gm In Sodium 100 Chloride 0.9% 50 ml @ 100 mls/hr IVPB Q8H [facility] Rx#: [id number] Oral 450 Output: Estimated Blood Loss 350 Other: Voiding Method Toilet # Voids 1 2 # Bowel Movements 0 - Exam This is a pleasant 82-year-old female in no acute distress. She is alert and oriented 3. Exam of the left hip reveals that her dressing is clean, dry and intact. She has full foot and ankle motion without difficulty or pain. Neurovascular status to the left lower extremity is intact. - Labs CBC & Chem 7: 07/28/22 07:06 Labs: Abnormal Lab Results - Last 24 Hours (Table) 07/28/22 Range/Units 07:06 WBC 10.13 H (4.50-10.00) X 10*3/uL RBC 3.57 L (4.10-5.20) X 10*6/uL Hgb 11.7 L (12.0-15.0) g/dL Hct 35.6 L (37.2-46.3) % MCV 99.7 H (80.0-97.0) fL MCH 32.8 H (27.0-32.0) pg Monocytes # 1.27 H (0.20-1.00) X 10*3/uL Assessment and Plan (1) Primary localized osteoarthritis of left hip Current Visit: Yes Status: Acute Code(s): M16.12 - UNILATERAL PRIMARY OSTEO ARTHRITIS, LEFT HIP SNOMED Code(s): 302121343349117 (2) Status post total replacement of left hip Current Visit: Yes Status: Acute Code(s): Z96.642 - PRESENCE OF LEFT ARTIFICIAL HIP JOINT SNOMED Code(s): 139651685946 Plan: The clinical findings are discussed with the patient. Continue orthopedic care. Plan discharged to home with home care tomorrow.
[2022-07-28] MEDS: SENNOSIDES-DOCUSATE SODIUM 1 EACH TAB PO SCH (20:13)
[2022-07-29] MEDS: HYDROcodone/APAP 7.5-325MG 1 EACH TAB PO PRN ×4 (05:05→23:54)
[2022-07-29] MEDS: GABAPENTIN 300 MG CAP PO SCH ×4 (08:27→22:03)
[2022-07-29] MEDS: HYDROmorphone 0.5 MG/0.5 ML SYRINGE IVP PRN ×2 (08:27→20:56)
[2022-07-29] MEDS: ASPIRIN 81 MG PO SCH ×2 (08:27→22:04)
--- NOTE | 2022-07-29 11:41 | P.PN ---
Subjective Progress Note Date: 07/29/22 This is a 82-year-old [fe]male who is status post left total hip arthroplasty. This is postoperative day #2 and patient is seen and evaluated at bedside today. Patient states that she feels she has improved since yesterday and was able to work with physical therapy today. Patient states that she is feeling nauseous after walking with physical therapy. Objective - Vital Signs Vital signs: Vital Signs Temp 98.0 F 07/29/22 08:00 Pulse 72 07/29/22 08:00 Resp 18 07/29/22 08:00 BP 132/70 07/29/22 08:00 Pulse Ox 95 07/29/22 08:00 FiO2 Intake & Output 07/28/22 07/29/22 07/29/22 18:59 06:59 18:59 Other: Voiding Method Toilet Toilet # Voids 3 1 # Bowel Movements 0 - Exam Vital signs are stable. Patient is in no acute distress and is alert and oriented 3. Calf is soft and nontender to palpation. Dressing is clean, dry, and intact. Patient has full foot and ankle motion without pain or difficulty. Sensation intact. Neurovascular status and circulatory status are intact. - Labs CBC & Chem 7: 07/28/22 07:06 Assessment and Plan (1) Primary localized osteoarthritis of left hip Current Visit: Yes Status: Acute Code(s): M16.12 - UNILATERAL PRIMARY OSTEOARTHRITIS, LEFT HIP SNOMED Code(s): 376303419458805 (2) Status post total replacement of left hip Current Visit: Yes Status: Acute Code(s): Z96.642 - PRESENCE OF LEFT ARTIFICIAL HIP JOINT SNOMED Code(s): 540744484854 Plan: Continue routine postop care and pain control. Continue anticoagulation with aspirin. Weightbearing as tolerated with a walker. Leave dressing in place for 7 days. Appreciate input from medicine. Anticipate discharge home with homecare tomorrow.
[2022-07-29] MEDS: ONDANSETRON 4 MG TAB PO PRN (12:41)
[2022-07-29 13:28] LABS: African American GFR (CKD) >90 (>60 ml/min/1.73 sqM); Anion Gap 9 mmol/L; Blood Urea Nitrogen 16 mg/dL (7-17); Calcium 8.1 mg/dL (8.4-10.2); Carbon Dioxide 24 mmol/L (22-30); Chloride 102 mmol/L (98-107); Glucose 122 mg/dL (74-99); Non-African American GFR(CKD) 84 (>60 ml/min/1.73 sqM); Potassium 4.2 mmol/L (3.5-5.1); Sodium 135 mmol/L (137-145)
--- NOTE | 2022-07-29 15:37 | P.PN ---
Subjective Progress Note Date: 07/29/22 - Reason for Consult Consult date: 07/28/22 Medical management postop left hip arthroplasty - History of Present Illness This is an 82-year-old female who was recently admitted under orthopedic services for left total hip arthroplasty with Dr. Collins. Patient follows with Dr. Lorne Alan in the outpatient setting and underwent presurgical screening and labs were reviewed and within normal limits. Patient does have a past medical history of asthma, breast cancer in 2001, TIA with some right-sided weakness residual, hypertension, osteoarthritis. Patient denies smoking and other illicit drug use or alcohol. Blood pressures are currently soft at 99/60 and recommend to continue holding blood pressure medications. Patient is also receiving IV pain medications along with oral and is maintained on aspirin twice a day. Patient did have a low-grade temp of 100.1 last night and currently CBC is pending. Patient is on room air and denies chest pain or shortness of breath. Hip x-ray evaluation shows hardware noted in correct placement. Patient to be seen and evaluated by physical therapy today. WBC mildly reactive at 10.13 hemoglobin is stable at 11.7. 07/29/2022 Patient is seen in follow-up morning continues to have pain and reports she was up and working with physical therapy and walking to the bathroom requiring assistance with a walker stating her pain is somewhat improved although continues with significant weakness and pain. Patient also developing increasing nausea after working with physical therapy. Anti-emetics ordered as needed and this was discussed with nursing staff. Recommend limiting IV D ilaudid use and continue with oral pain medications. Patient encouraged to increase activity as tolerated and continue to encourage oral intake. Patient is afebrile denies chest pain or shortness of breath. Basic labs obtained and reviewed within normal limits. Blood pressure remains normotensive and recommend to continue holding her atenolol. Review of systems: Constitutional: No reports of fatigue, fever, or chills Cardiovascular: No reports of chest pain or palpitations Respiratory: No reports of shortness of breath or cough GI: reports of nausea, no reports of vomiting, or diarrhea : No reports of dysuria or retention Neurovascular: reports of generalized weakness and continued discomfort of the left hip All medications have been reviewed PHYSICAL EXAMINATION: GENERAL: The patient is alert and oriented x4, Well developed, well nourished. Obese. HEENT: Pupils are round and equally reacting to light. EOMI. no scleral icterus. No conjunctival pallor. Normocephalic, atraumatic. No pharyngeal erythema. No thyromegaly. CARDIOVASCULAR: S1 and S2 muffled PULMONARY: diminished breath sounds bilaterally with no wheezing or rhonchi noted. ABDOMEN: soft. Nontender on exam. obese. non-distended, normoactive bowel sounds. No palpable organomegaly. MUSCULOSKELETAL: No joint swelling or deformity. EXTREMITIES: No cyanosis, clubbing, or pedal edema. Left hip anterior dressing is dry and intact with no surrounding redness or swelling and soft on palpation NEUROLOGICAL: Gross neurological examination did not reveal any focal deficits. Diffuse weakness SKIN: No rashes. Assessment: Status post left total hip arthroplasty, postop day 2 Mild leukocytosis most likely reactive as patient is afebrile denies shortness of breath or dysuria History of hypertension, currently soft blood pressures History of osteoarthritis history of TIA history of asthma, not in exacerbation GI prophylaxis DVT prophylaxis Full code Plan: Recommend to continue with current medications and management per orthopedic services. Patient has been up and working with PT/OT therapy and became increasingly nauseated and continues with pain and discomfort of the left hip when ambulating. Patient reports she was requiring assistance to the bathroom with a walker and 1-2 person assist. Encouraged increased activity as tolerated and recommend physical therapy evaluation again in the morning with possible discharge in 24 hours. Pain control per orthopedics. Recommend limiting the use of IV Dilaudid and continuing with oral pain medications and this was discussed with patient as well as the nursing staff. Incentive spirometer ordered and encourage the patient to continue using at least 10 times every hour while awake. Patient was maintained on IV hydration and is tolerating diet and drinking and voiding with no difficulties, would recommend decreasing the amount of fluids. Recommend to hold blood pressure medication and monitor blood pressures. Currently normotensive and will continue to hold her blood pressure medication of atenolol. Patient encouraged to follow-up with her primary care provider Dr. Alan on discharge. We will continue to follow along with orthopedics during hospitalization. Thank you kindly for this consultation. The impression and plan of care has been dictated by Eryn Zuñiga, nurse practitioner as directed. Dr. Gema MD I have performed a history and examination and MDM of this patient, discussed the same with the dictator, and agree with the dictator's assessment and plan as written ,documented as a scribe. Based on total visit time, I have performed more than 50% of the visit. Any additional findings or plans will be noted. Objective - Vital Signs Vital signs: Vital Signs Temp 98.0 F 07/29/22 08:00 Pulse 72 07/29/22 08:00 Resp 18 07/29/22 08:00 BP 132/70 07/29/22 08:00 Pulse Ox 95 07/29/22 08:00 FiO2 Intake & Output 07/28/22 07/29/22 07/29/22 18:59 06:59 18:59 Other: Voiding Method Toilet Toilet # Voids 3 1 # Bowel Movements 0 - Labs CBC & Chem 7: 07/28/22 07:06 07/29/22 12:21 Labs: Abnormal Lab Results - Last 24 Hours (Table) 07/28/22 Range/Units 07:06 WBC 10.13 H (4.50-10.00) X 10*3/uL RBC 3.57 L (4.10-5.20) X 10*6/uL Hgb 11.7 L (12.0-15.0) g/dL Hct 35.6 L (37.2-46.3) % MCV 99.7 H (80.0-97.0) fL MCH 32.8 H (27.0-32.0) pg Monocytes # 1.27 H (0.20-1.00) X 10*3/uL
[2022-07-29] MEDS: SENNOSIDES-DOCUSATE SODIUM 1 EACH TAB PO SCH (22:04)
[2022-07-30] MEDS: HYDROcodone/APAP 7.5-325MG 1 EACH TAB PO PRN ×3 (05:33→22:12)
[2022-07-30] MEDS: ASPIRIN 81 MG PO SCH ×2 (08:28→22:16)
[2022-07-30] MEDS: GABAPENTIN 300 MG CAP PO SCH ×4 (08:28→22:16)
[2022-07-30 11:00] LABS: Basophils # (A) 0.03 X 10*3/uL (0.00-0.10); Basophils % (A) 0.3 %; Eosinophils # (A) 0.32 X 10*3/uL (0.04-0.35); Eosinophils % (A) 2.8 %; HCT 32.2 % (37.2-46.3); HGB 10.4 g/dL (12.0-15.0); Immature Grans, Automated 0.4 %; Lymphocytes # (A) 2.36 X 10*3/uL (0.90-5.00); Lymphocytes % (A) 20.6 %; MCH 32.5 pg (27.0-32.0); MCHC 32.3 g/dL (32.0-37.0); MCV 100.6 fL (80.0-97.0); Mean Platelet Volume 10.2 fL (9.5-12.2); Monocytes # (A) 1.14 X 10*3/uL (0.20-1.00); NRBC Per 100 WBC 0 /100 WBCS (0.0-0.0); Neutrophils # (A) 7.55 X 10*3/uL (1.80-7.70); Neutrophils % (A) 65.9 %; Platelet Count 219 X 10*3/uL (140-440); RDW 12.8 % (11.5-14.5); WBC 11.45 X 10*3/uL (4.50-10.00)
--- NOTE | 2022-07-30 11:02 | P.PN ---
Subjective Progress Note Date: 07/30/22 This is a 82-year-old female who is status post left total hip arthroplasty. This is postoperative day #3 and patient is seen and evaluated at bedside today. Patient states that she feels she still has pain in the left thigh, but is able to ambulate and work with physical therapy. Patient states that she continues to be nauseous and dizzy after she works with PT. Objective - Vital Signs Vital signs: Vital Signs Temp 97.8 F 07/30/22 08:00 Pulse 83 07/30/22 08:00 Resp 14 07/30/22 08:00 BP 124/59 07/30/22 08:00 Pulse Ox 94 L 07/30/22 08:00 FiO2 Intake & Output 07/29/22 07/30/22 07/30/22 18:59 06:59 18:59 Intake Total 640 Balance 640 Intake: Oral 640 Other: Voiding Method Toilet # Voids 3 1 # Bowel Movements 1 - Exam Vital signs are stable. Patient is in no acute distress and is alert and oriented 3. [place] with movement of the left hip. Calf is soft and nontender to palpation. Dressing is clean, dry, and intact. Patient has full foot and ankle motion without pain or difficulty. Sensation intact. Neurovascular status and circulatory status are intact. - Labs CBC & Chem 7: 07/30/22 06:58 07/29/22 12:21 Labs: Abnormal Lab Results - Last 24 Hours (Table) 07/29/22 Range/Units 12:21 Sodium 135 L (137-145) mmol/L Glucose 122 H (74-99) mg/dL Calcium 8.1 L (8.4-10.2) mg/dL Assessment and Plan (1) Primary localized osteoarthritis of left hip Current Visit: Yes Status: Acute Code(s): M16.12 - UNILATERAL PRIMARY OSTEOARTHRITIS, LEFT HIP SNOMED Code(s): 061900380655837 (2) Status post total replacement of left hip Current Visit: Yes Status: Acute Code(s): Z96.642 - PRESENCE OF LEFT ARTIFICIAL HIP JOINT SNOMED Code(s): 547827344123 Plan: Continue routine postop care and pain control. Continue anticoagulation with aspirin. Weightbearing as tolerated with a walker. Leave dressing in place for 7 days. Appreciate input from medicine. I have discontinued Dilaudid and added Ketorolac for pain and Pepcid for her nausea symptoms. Patient also has [place] ordered for pain and Zofran for nausea. I discussed the option for inpatient rehab with the patient today and she states that she prefers to be discharged home. Anticipate discharge home with homecare later today or tomorrow.
[2022-07-30] MEDS: FAMOTIDINE 20 MG TAB PO SCH ×2 (11:31→22:16)
[2022-07-30] MEDS: KETOROLAC 15 MG/ML 1 ML VIAL IVP PRN ×2 (11:31→17:35)
[2022-07-30] MEDS ORDERED: METOCLOPRAMIDE 5 MG/ML 2 ML VIAL IVP PRN (14:36)
[2022-07-30] MEDS ORDERED: ONDANSETRON 4 MG/2 ML VIAL IVP PRN (14:36)
--- NOTE | 2022-07-30 14:43 | P.PN ---
Subjective Progress Note Date: 07/30/22 - Reason for Consult Consult date: 07/28/22 Medical management postop left hip arthroplasty - History of Present Illness This is an 82-year-old female who was recently admitted under orthopedic services for left total hip arthroplasty with Dr. Collins. Patient follows with Dr. Lorne Alan in the outpatient setting and underwent presurgical screening and labs were reviewed and within normal limits. Patient does have a past medical history of asthma, breast cancer in 2001, TIA with some right-sided weakness residual, hypertension, osteoarthritis. Patient denies smoking and other illicit drug use or alcohol. Blood pressures are currently soft at 99/60 and recommend to continue holding blood pressure medications. Patient is also receiving IV pain medications along with oral and is maintained on aspirin twice a day. Patient did have a low-grade temp of 100.1 last night and currently CBC is pending. Patient is on room air and denies chest pain or shortness of breath. Hip x-ray evaluation shows hardware noted in correct placement. Patient to be seen and evaluated by physical therapy today. WBC mildly reactive at 10.13 hemoglobin is stable at 11.7. 07/29/2022 Patient is seen in follow-up morning continues to have pain and reports she was up and working with physical therapy and walking to the bathroom requiring assistance with a walker stating her pain is somewhat improved although continues with significant weakness and pain. Patient also developing increasing nausea after working with physical therapy. Anti-emetics ordered as needed and this was discussed with nursing staff. Recommend limiting IV D ilaudid use and continue with oral pain medications. Patient encouraged to increase activity as tolerated and continue to encourage oral intake. Patient is afebrile denies chest pain or shortness of breath. Basic labs obtained and reviewed within normal limits. Blood pressure remains normotensive and recommend to continue holding her atenolol. 07/30/2022 Patient is seen and evaluated in follow-up today currently tearful reporting her pain is intense. Patient is maintained on [place] and Toradol being added. Patient continues to have left leg pain that is directly under the surgical site and extremely intense on light palpation. Patient has been up and working with physical therapy and walking multiple times in her room. It was suggested of possible rehab although patient is able to handle stairs and walk independently with standby assist, she would not qualify for [facility] for rehab. Patient prefers to go home with her spouse on discharge. Toradol is being added and have reviewed her post hip x-rays and are intact. Recommend ice and heat to the site and have added Toradol per orthopedics. Dilaudid was discontinued. Patient is on higher dose strength [place] as as well. Patient is afebrile denies chest pain or shortness of breath. Patient continues to report nausea after up and walking. Have added Reglan as well. Encouraged to increase activity as tolerated and continue to encourage oral intake. Recommend to continue holding blood pressure medications she remains normotensive at this time. Surgical site of the left hip anterior approach is dry and intact with no surrounding erythema and swelling noted. There are some mild spots of bruising which is expected af ter surgery. Soft and palpable with no hematoma noted. Review of systems: Constitutional: No reports of fatigue, fever, or chills Cardiovascular: No reports of chest pain or palpitations Respiratory: No reports of shortness of breath or cough GI: reports of nausea, no reports of vomiting, or diarrhea : No reports of dysuria or retention Neurovascular: reports of generalized weakness and continued discomfort of the left hip directly under the surgical site All medications have been reviewed PHYSICAL EXAMINATION: GENERAL: The patient is alert and oriented x4, Well developed, well nourished. Obese. HEENT: Pupils are round and equally reacting to light. EOMI. no scleral icterus. No conjunctival pallor. Normocephalic, atraumatic. No pharyngeal erythema. No thyromegaly. CARDIOVASCULAR: S1 and S2 muffled PULMONARY: diminished breath sounds bilaterally with no wheezing or rhonchi noted. ABDOMEN: soft. Nontender on exam. obese. non-distended, normoactive bowel sounds. No palpable organomegaly. MUSCULOSKELETAL: No joint swelling or deformity. EXTREMITIES: No cyanosis, clubbing, or pedal edema. Left hip anterior dressing is dry and intact with no surrounding redness or swelling and soft on palpation NEUROLOGICAL: Gross neurological examination did not reveal any focal deficits. Diffuse weakness SKIN: No rashes. Assessment: Status post left total hip arthroplasty, postop day 3 Mild leukocytosis most likely reactive as patient is afebrile denies shortness of breath or dysuria History of hypertension, currently soft blood pressures History of osteoarthritis history of TIA history of asthma, not in exacerbation GI prophylaxis DVT prophylaxis Full code Plan: Recommend to continue with current medications and management per orthopedic services. Patient has been up and working with PT/OT therapy and continues to endorse nausea after working with them. Patient continues to report 10/10 pain at the surgical site directly underneath the dressing and extremely sensitive to light palpation. No hematoma or surrounding erythema or swelling noted. Patient did have x-rays done which were negative. They suggested possible rehab although patient would not qualify as she is doing the stairs and walking multiple times. Patient does not prefer to go to rehab. Patient is being held by orthopedics for pain management. Dilaudid has been discontinued as this may have been a possible component of the dizziness. Encouraged increase activity as tolerated and also encourage oral intake. Recommend to continue with incentive spirometer at least 10 times every hour while awake. Toradol is being added to the pain regimen and will add Reglan as well for her nausea. Patient encouraged to follow-up with her primary care provider Dr. Alan on discharge. We will continue to follow along with orthopedics during hospitalization. Thank you kindly for this consultation. Possible discharge in the next 24-48 hours. The impression and plan of care has been dictated by Eryn Zuñiga, nurse practitioner as directed. Dr. Gema MD I have performed a history and examination and MDM of this patient, discussed the same with the dictator, and agree with the dictator's assessment and plan as written ,documented as a scribe. Based on total visit time, I have performed more than 50% of the visit. Any additional findings or plans will be noted. Objective - Vital Signs Vital signs: Vital Signs Temp 97.8 F 07/30/22 08:00 Pulse 83 07/30/22 08:00 Resp 14 07/30/22 08:00 BP 124/59 07/30/22 08:00 Pulse Ox 94 L 07/30/22 08:00 FiO2 Intake & Output 07/29/22 07/30/22 07/30/22 18:59 06:59 18:59 Intake Total 640 Balance 640 Intake: Oral 640 Other: Voiding Method Toilet # Voids 3 1 # Bowel Movements 1 - Labs CBC & Chem 7: 07/30/22 06:58 07/29/22 12:21 Labs: Abnormal Lab Results - Last 24 Hours (Table) 07/30/22 Range/Units 06:58 WBC 11.45 H (4.50-10.00) X 10*3/uL RBC 3.20 L (4.10-5.20) X 10*6/uL Hgb 10.4 L (12.0-15.0) g/dL Hct 32.2 L (37.2-46.3) % MCV 100.6 H (80.0-97.0) fL MCH 32.5 H (27.0-32.0) pg Immature Gran # 0.05 H (0.00-0.04) X 10*3/uL Monocytes # 1.14 H (0.20-1.00) X 10*3/uL
[2022-07-30] MEDS: ONDANSETRON 4 MG TAB PO PRN (15:55)
[2022-07-30 20:04] VITALS: RESP 18
[2022-07-30] MEDS: SENNOSIDES-DOCUSATE SODIUM 1 EACH TAB PO SCH (22:16)
[2022-07-31] MEDS: ASPIRIN 81 MG PO SCH (09:23)
[2022-07-31] MEDS: FAMOTIDINE 20 MG TAB PO SCH (09:23)
[2022-07-31] MEDS: GABAPENTIN 300 MG CAP PO SCH ×2 (09:23→14:47)
[2022-07-31 09:30] VITALS: BP 129/74; PULSE 73; TEMP 98.5
--- NOTE | 2022-07-31 12:14 | P.DS ---
Providers Date of admission: 07/28/22 11:18 Expected date of discharge: 07/31/22 Attending physician: Lukas Collins Consults: 07/27/22 11:20 Consult Physician Routine Consulting Provider: Vahid Field Consult Reason/Comments: medical management Do you want consulting provider notified?: Yes [facility]: This is an 82-year-old female who has been followed in our office by Dr. Collins for continued complaints of left hip pain due to left hip osteoarthritis. Treatment options were discussed, and patient elected to undergo a left total hip arthroplasty. Patient was seen pre-operatively by Dr. Alan and cleared for surgery. Patient underwent a direct anterior left total hip arthroplasty on 07/27/22. The procedure was performed without complication or sequelae. The patient is doing fairly well postoperatively. Vital signs and labs are stable on postoperative day #4. Patient was examined bedside today. Patient states her pain has improved significantly compared to yesterday. She was able to ambulate to the bathroom this morning without difficulty. Patient overall feels well this morning and would like to return home. Patient is ambulating with a walker with minimal assistance at this time. She is tolerating her diet well. Patient is comfortable being discharged home today. Patient denies chest pain, shortness of breath, nausea, vomiting, fevers, chills. On examination, the patient is sitting up in the bed in no apparent distress. She is alert and orientated 3. On inspection of the left hip, there is a clean, dry, intact Optifoam surgical dressing in place. There is no bleeding or drainage the dressing. Patient has good strength and ROM of the left ankle and toes. Motor and sensory function is intact of the left lower extremity. The dorsalis pedis pulse is easily palpable, the left lower extremity is warm and well perfused with brisk capillary refill. Calf is soft and non-tender to palpation. Patient is discharged home with home health in good condition, pending medical clearance. Patient will follow-up with Dr. Collins in the office in 2 weeks. Please see med rec for accurate list of discharge medication. Plan - Discharge Summary Discharge Rx Participant: Yes New Discharge Prescriptions: New Aspirin [Adult Low Dose Aspirin EC] 81 mg PO BID 30 Days #60 tab Ondansetron Odt [Zofran Odt] 1 tab PO Q8HR PRN #10 tab PRN Reason: Nausea Ketorolac [Toradol] 10 mg PO Q6HR #12 tab HYDROcodone/APAP 7.5-325MG [[place] 7.5-325] 1 - 2 tab PO Q6H PRN #32 tab PRN Reason: Pain Sennosides [Senokot] 2 tab PO DAILY PRN #60 tablet PRN Reason: Constipation No Action traMADol HCL [Ultram] 50 mg PO TID PRN PRN Reason: Pain atenoloL [Tenormin] 100 mg PO DAILY Acetaminophen/Diphenhydramine [Tylenol PM 500-25mg] 1 tab PO HS Multivit with Calcium,Iron,Min [Women's Multivitamin] 1 each PO DAILY Gabapentin 600 mg PO QID Discharge Medication List traMADol HCL [Ultram] 50 mg PO TID PRN 02/19/16 [History] Acetaminophen/Diphenhydramine [Tylenol PM 500-25mg] 1 tab PO HS 07/21/22 [History] Gabapentin 600 mg PO QID 07/21/22 [History] Multivit with Calcium,Iron,Min [Women's Multivitamin] 1 each PO DAILY 07/21/22 [History] atenoloL [Tenormin] 100 mg PO DAILY 07/21/22 [History] Aspirin [Adult Low Dose Aspirin EC] 81 mg PO BID 30 Days #60 tab 07/27/22 [Rx] HYDROcodone/APAP 7.5-325MG [[place] 7.5-325] 1 - 2 tab PO Q6H PRN #32 tab 07/27/22 [Rx] Sennosides [Senokot] 2 tab PO DAILY PRN #60 tablet 07/27/22 [Rx] Ketorolac [Toradol] 10 mg PO Q6HR #12 tab 07/30/22 [Rx] Ondansetron Odt [Zofran Odt] 1 tab PO Q8HR PRN #10 tab 07/30/22 [Rx] Follow up Appointment(s)/Referral(s): [facility]idential [facility] [NON-STAFF] - 1-2 Days Lukas Collins DO [Doctor of Osteopathic Medicine] - 08/09/22 1:00 pm Activity/Diet/Wound Care/Special Instructions: Weightbearing as tolerated with walker. Leave dressing intact. Dressing may be removed by home care nurse or by patient in 7 days. Then change dressing twice daily until follow up. May shower with initial dressing intact and after removal. If dressing become saturated, please remove. Please take aspirin 81mg twice daily for 30 days to prevent blood clots. Recommend use of compression stockings daily until follow up to help prevent swelling and blood clots. May remove at night before sleeping. Please follow-up with [facility] in 2 weeks and call with any questions or concerns, . Discharge Disposition: HOME WITH HOME HEALTH SERVICES
[2022-07-31] MEDS: HYDROcodone/APAP 7.5-325MG 1 EACH TAB PO PRN (12:57)
--- NOTE | 2022-08-01 02:34 | PN ---
PROGRESS NOTE DATE OF SERVICE: 07/31/2022 DATE OF SERVICE: 07/31/2022. HISTORY OF PRESENT ILLNESS: This is an 82-year-old woman who was admitted after left total knee joint arthroplasty improving significantly. No chest pain, no palpitations, no fever. PHYSICAL EXAMINATION: VITAL SIGNS: Pulse 73, blood pressure 100/75, and respirations 18. CHEST: Clear to auscultation. CARDIOVASCULAR: S1, S2. ABDOMEN: Soft. LEGS: Status post surgery. LABS: Reviewed. ASSESSMENT: 1. Status post left total knee joint arthroplasty. 2. Mild leukocytosis, possibly reactive. 3. Hypertension. 4. Transient ischemic attack. 5. Multiple medical issues. RECOMMENDATIONS: Recommended to continue current management. Resume rest of the home medications. DVT prophylaxis. Rest of the recommendations per Orthopedic surgery. Follow with primary physician closely after discharge. CRISTOBAL / NGHIA: [id number] /
== END 2022-07-31 15:00 | disposition home health service (06) ==
LOC: OR 10:06 → 4SSUR 14:53 → OR 07-28 11:18 → 4SSUR 07-28 11:18
PROVIDERS: ADMIT Orthopaedic Surgery; ATTEND Orthopaedic Surgery
DX: M16.12 Unilateral primary osteoarthritis, left hip (principal); J45.909 Unspecified asthma, uncomplicated; I69.351 Hemiplegia and hemiparesis following cerebral infarction affecting right dominant side; I10 Essential (primary) hypertension; D72.829 Elevated white blood cell count, unspecified; Z85.3 Personal history of malignant neoplasm of breast; Z85.828 Personal history of other malignant neoplasm of skin; Z79.82 Long term (current) use of aspirin; Z79.899 Other long term (current) drug therapy; Z88.0 Allergy status to penicillin
CPT/HCPCS: 97116 ×2; 97161; 97530 ×2; 97535 ×3; 97166; 86900; 86901; 88305; 80048; 85025 ×2; 86850; 88311; 73501 ×2; 27130; G0378 ×4; C1776; J0690 ×3; J2405; J2795; J1885; J1170 ×3

== ENCOUNTER 2022-09-06 15:25 | Emergency (ER) | payer MEDICARE ==
[2022-09-06 15:34] VITALS: BP 166/74; PULSE 69; RESP 18; TEMP 98.5
[2022-09-06] MEDS ORDERED: IBUPROFEN 400 MG TAB PO STA (15:38)
[2022-09-06] MEDS ORDERED: HYDROcodone/APAP 5-325MG 1 EACH TAB PO STA (15:55)
--- NOTE | 2022-09-06 17:18 | CT ---
EXAMINATION TYPE: CT brain cspine wo con CT DLP: 1392.2 mGycm, Automated exposure control for dose reduction was used. DATE OF EXAM: 09/06/2022 5:05 PM COMPARISON: None CLINICAL INDICATION:Female, 82 years old with history of injury; Fall. TECHNIQUE: Brain: Multiple axial CT images of the brain were obtained without IV contrast. Cspine: Axial CT images from the skull base to the inferior aspect of T2 we obtained without intraven ous contrast. Coronal and sagittal reformatted images were also reviewed. FINDINGS: Brain: Extra-axial spaces: No abnormal extra-axial fluid collections. Ventricular system: Within normal limits Cerebral parenchyma: No acute intraparenchymal hemorrhage or mass effect. The mahan-white junction is well differentiated. Cerebellum: Unremarkable. Mass effect: No evidence of midline shift. Intracranial vasculature: Atherosclerotic calcifications of the intracranial vessels. Soft tissues: Normal. Calvarium/osseous structures: No depressed skull fracture. Paranasal sinuses and mastoid air cells: Clear. Visualized orbits: Bilateral aphakia Cervical spine: Fracture: None. Osseous structures: Multilevel degenerative disc disease changes with endplate spurring and disc oste ophyte complex's. Vertebral alignment: Within normal limits. Spinal canal/Neural Foramina: No evidence of significant spinal canal narrowing. No evidence for sign ificant neural foraminal stenosis. Neck soft tissues: Prevertebral soft tissues are within normal limits. Other: The airway is patent. The lung apices are clear. Atherosclerosis of the arterial vasculature. IMPRESSION: 1. No acute intracranial process. 2. No evidence of cervical spine fracture. 3. Moderate multilevel degenerative disc disease.
--- NOTE | 2022-09-06 18:47 | XR ---
EXAMINATION TYPE: XR pelvis AP view, XR femur LT DATE OF EXAM: 09/06/2022 6:14 PM INDICATION: Patient age:Female; 82 years old; Reason for study: injury; COMPARISON: Right hip radiograph 12/26/2017 TECHNIQUE: The pelvis was examined in a single projection. Left femur and frontal and lateral views. FINDINGS : Bilateral hip arthroplasty changes are present with hardware appears intact. The right art hroplasty appears higher in position compared to the left. No evidence of fracture. The left femur demonstrates arthroplasty changes and unicompartmental knee arthroplasty involving the medial compartment. Hardware appears intact. No evidence for fracture of the femur or visualized tib ia. There is no evidence of fracture or dislocation. There is no soft tissue abnormality. No abnorma l calcifications are present. Multilevel degenerative changes of the lower spine. IMPRESSION: 1. No acute osseous pathology. 2. Post arthroplasty changes of the hips and medial left knee joint compartment.
--- NOTE | 2022-09-06 18:50 | XR ---
EXAMINATION TYPE: XR chest 1V portable, XR thoracic spine 2V, XR lumbar spine 2 or 3V DATE OF EXAM: 09/06/2022 6:14 PM COMPARISON: Chest radiographs from TECHNIQUE: XR chest 1V portable, XR thoracic spine 2V, XR lumbar spine 2 or 3V . Frontal view of the chest. Frontal and lateral views of the thoracic spine. Frontal and lateral views of the lumbar spine. CLINICAL INDICATION:Female, 82 years old with history of injury; FINDINGS: Lungs/Pleura: There is no evidence of pleural effusion, focal consolidation, or pneumothorax. Pulmonary vascularity: Unremarkable. Heart/mediastinum: Cardiomediastinal silhouette is unremarkable. Musculoskeletal: No acute osseous pathology. Bilateral shoulder arthroplasty changes. Hardware appear s intact. Degeneration changes of the acromion clavicular joints bilaterally. Spine: Lumbar spine demonstrates dextroscoliosis apex L1-L2. Osteophyte formation and facet joint arthropath y is present. There is atherosclerosis of the arterial vasculature.There is multilevel osteophyte for mation of the vertebral heights are grossly maintained there is disc space loss present throughout th e spine. IMPRESSION: 1. No acute cardiopulmonary disease/process. 2. Moderate degeneration changes of the spine with scoliosis. 3. No evidence of fracture. 4.
--- NOTE | 2022-09-06 18:51 | XR ---
EXAMINATION TYPE: XR knee limited LT DATE OF EXAM: 09/06/2022 6:14 PM INDICATION: Patient age:Female; 82 years old; Reason for study: injury; PHH. COMPARISON: Same day femur radiograph TECHNIQUE: The Left knee(s) was examined in Frontal, lateral and oblique projections. FINDINGS: Unicompartmental medial joint arthroplasty. Hardware appears intact. No evidence of fractur es. Degeneration changes of the tibial plateau and patellofemoral joint. No evidence of any acute os seous pathology, soft tissue swelling, or joint effusion is noted. IMPRESSION: 1. No acute osseous pathology. 2. Large severe osteoarthritic changes.
--- NOTE | 2022-09-06 19:17 | ED ---
Fall HPI - General Chief Complaint: Fall Stated Complaint: Fall, lt hip pain Time Seen by Provider: 09/06/22 15:32 Source: patient, EMS Mode of arrival: EMS - History of Present Illness Initial Comments: Patient states that she had a trip and ground-level fall. She complains of pain in the head and neck and back, as well as the left knee. Nothing makes the pain better or worse. She took no medicines for this. She had no loss consciousness. She has no nausea or vomiting. She has no belly pain. She has no chest pain or pressure or tightness. She had no lightheadedness or dizziness. - Related Data Home Medications Medication Instructions Recorded Confirmed traMADol HCL [Ultram] 50 mg PO BID PRN 02/19/16 09/06/22 Gabapentin 600 mg PO QID 07/21/22 09/06/22 atenoloL [Tenormin] 100 mg PO DAILY 07/21/22 09/06/22 Aspirin [Adult Low Dose Aspirin EC] 81 mg PO DAILY 09/06/22 09/06/22 Sertraline [Zoloft] 25 mg PO DAILY PRN 09/06/22 09/06/22 Allergies Allergy/AdvReac Type Severity Reaction Status Date / Time bee pollen Allergy Anaphylaxis Verified 09/06/22 16:09 Penicillins Allergy Anaphylaxis Verified 09/06/22 16:09 cortisone AdvReac depressed Verified 09/06/22 16:09 steroids Allergy Nausea Uncoded 09/06/22 15:35 diarrhea Review of Systems ROS Statement: Those systems with pertinent positive or pertinent negative responses have been documented in the HPI. ROS Other: All systems not noted in ROS Statement are negative. Past Medical History Past Medical History: Asthma, Cancer, CVA/TIA, Hypertension, Osteoarthritis (OA) Additional Past Medical History / Comment(s): hx. breast cancer 2001-had radiation, hx. skin cancer, scoliosis, stroke 25 yrs. ago, TIA 10 yrs ago-slight right sided weakness History of Any Multi-Drug Resistant Organisms: None Reported Past Surgical History: Back Surgery, Bladder Surgery, Bowel Resection, Breast Surgery, Hysterectomy, Joint Replacement Additional Past Surgical History / Comment(s): left breast lumpectomy, both knees repolaced, back surg. x 2, cataract surg, bladder suspensioN, TOTAL LT SHOULDER/R shoulder, right hip, left hip replacement Past Anesthesia/Blood Transfusion Reactions: No Reported Reaction Additional Past Anesthesia/Blood Transfusion Reaction / Comment(s): CLAUSTERPHOBIA Past Psychological History: No Psychological Hx Reported Smoking Status: Never smoker Past Alcohol Use History: Rare Past Drug Use History: None Reported - Past Family History Mother Family Medical History: Dementia, Hypertension Additional Family Medical History / Comment(s): Mother at age 93 from Alzheimer's. Father Family Medical History: Coronary Artery Disease (CAD) Additional Family Medical History / Comment(s): Father at age 94 with history of coronary artery disease. Brother(s) Family Medical History: Cancer Additional Family Medical History / Comment(s): one brother from leukemia at age 37. Daughter(s) Family Medical History: No Reported History Additional Family Medical History / Comment(s): . General Exam Limitations: no limitations General appearance: alert, in no apparent distress Head exam: Present: atraumatic, normocephalic, normal inspection Eye exam: Present: normal appearance, PERRL, EOMI. Absent: scleral icterus, conjunctival injection, periorbital swelling ENT exam: Present: normal exam, mucous membranes moist Neck exam: Present: normal inspection. Absent: tenderness, meningismus, lymphadenopathy Respiratory exam: Present: normal lung sounds bilaterally. Absent: respiratory distress, wheezes, rales, rhonchi, stridor Cardiovascular Exam: Present: regular rate, normal rhythm, normal heart sounds. Absent: systolic murmur, diastolic murmur, rubs, gallop, clicks GI/Abdominal exam: Present: soft, normal bowel sounds. Absent: distended, tenderness, guarding, rebound, rigid Extremities exam: Present: normal inspection, full ROM, normal capillary refill. Absent: tenderness, pedal edema, joint swelling, calf tenderness Back exam: Present: normal inspection Neurological exam: Present: alert, oriented X3, CN II-XII intact Psychiatric exam: Present: normal affect, normal mood Skin exam: Present: warm, dry, intact, normal color. Absent: rash Course Vital Signs 09/06/22 15:28 Temperature 98.5 F Pulse Rate 69 Respiratory 18 Rate Blood Pressure 166/74 O2 Sat by Pulse 95 Oximetry Medical Decision Making - Medical Decision Making Patient presents with injuries from a fall. She had no cardiac or neurological symptoms. She had multiple areas she was complaining of pain. She has no deformities on examination. I did obtain a CT the head and cervical spine, as well as obtaining x-rays of the left knee, lumbar and thoracic spine, all of which were read by me as negative. I did order the patient oral [place] to help with her pain. I also gave her Motrin. Patient is feeling much better. She has no neurological deficits. She is stable for discharge. Disposition Clinical Impression: Fall Disposition: HOME SELF-CARE Condition: Good Instructions (If sedation given, give patient instructions): Fall Prevention for Older Adults (ED) Is patient prescribed a controlled substance at d/c from ED?: No Referrals: Lorne Alan MD [Primary Care Provider] - 1-2 days
== END 2022-09-06 19:32 | disposition home or self-care (01) ==
LOC: EC 15:25
DX: J45.909 Unspecified asthma, uncomplicated (principal); I10 Essential (primary) hypertension; Z04.3 Encounter for examination and observation following other accident; Z79.82 Long term (current) use of aspirin; Z91.030 Bee allergy status; Z88.0 Allergy status to penicillin; Z88.8 Allergy status to other drugs, medicaments and biological substances
CPT/HCPCS: 70450; 71045; 72070; 72100; 72125; 72170; 99285

== ENCOUNTER → 2023-05-12 | Outpatient (CLI) | payer MEDICARE ==
--- NOTE | 2023-05-12 14:07 | NM ---
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 Attention to lumbar spine and sacrum. Other idiopathic scoliosis, lumbar region. Spondylosis without myelopathy or radiculopathy, lumbosacral region. Radiculopathy, lumbar region. S vito stenosis, lumbar region with neurogenic claudication. Spondylosis without myelopathy or radicul opathy, lumbar region. Hx of laminectomy at L4/5 and L5/S1. Hx of breast ca. Right GEN. Melanoma. Juan Jose ateral shoulder replacement. Bilateral knee surgery. COMPARISON: 07/12/2022 TECHNIQUE: Intravenous administration 23.3 mCi Tc 99m MDP followed by multiple scintigraphic images o f the appendicular and axial skeleton. Images acquired 3 hours post injection. FINDINGS: No abnormal uptake is identified within the appendicular or axial skeleton to suggest metastatic dise ase. Mild uptake within the spine on the right side at the level of T12, right knee lateral aspect, left f irst digit metatarsophalangeal joint and right ankle. There is increased uptake within the bilateral shoulder, sternoclavicular, and sacroiliac joints con sistent with degenerative changes. No other photopenic areas or areas of increased activity are ident ified. Physiologic radiotracer activity is demonstrated in the kidneys and bladder. IMPRESSION: New uptake within the left first digit near the metatarsophalangeal joint, otherwise exam is not sign ificantly changed from prior. Degeneration changes of the spine osteoplasty activity at the level of T12 on the right there are sca ttered degeneration changes including the right knee, shoulders and sternoclavicular joints.
== END | disposition home or self-care (01) ==
LOC: RADNMMAIN 09:56
PROVIDERS: ATTEND Physical Medicine & Rehabilitation
DX: M47.26 Other spondylosis with radiculopathy, lumbar region (principal); M48.062 Spinal stenosis, lumbar region with neurogenic claudication; M41.26 Other idiopathic scoliosis, lumbar region; M17.11 Unilateral primary osteoarthritis, right knee; M19.011 Primary osteoarthritis, right shoulder; M19.09 Primary osteoarthritis, other specified site; Z85.3 Personal history of malignant neoplasm of breast; Z98.890 Other specified postprocedural states; Z96.611 Presence of right artificial shoulder joint; Z96.612 Presence of left artificial shoulder joint; Z96.641 Presence of right artificial hip joint
CPT/HCPCS: 78306; A9503